=== PATIENT | male | born 1955 | race American Indian/Alaskan Native ===

== ENCOUNTER 2018-06-19 05:56 | Emergency (ER) | payer SELFPAY ==
--- NOTE | 2018-06-19 06:01 | Event Note ---
Date: 06/19/18 62-year-old gentleman with a reported history of BPH, on tamsulosin, following up with urology, Dr. Sanchez, presenting with spontaneous urinary retention. No other complaints. Meza catheter ordered, urinalysis, urine culture ordered, basic metabolic panel, magnesium ordered, nursing team to [facility] Meza catheter.
--- NOTE | 2018-06-19 06:49 | Emergency Department Report ---
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 He has been unable to urinate for several hours. He attributes the urinary retention to drinking beer last night. He has been compliant with Flomax therapy. He is followed by urologist Dr. Sanchez. Denies any pain. He denies fever. He is otherwise has been his normal state of good health. He has had Meza catheter on previous occasions. MD Complaint: other (urinary retention) -: This morning Severity: severe Consistency: constant urinary retention ED Review of Systems ROS: Stated complaint: URINARY RETENTION Other details as noted in HPI Comment: All other systems reviewed and negative Constitutional: denies: fever, malaise Respiratory: denies: shortness of breath ED Past Medical Hx - Past Medical History Previous Medical History?: Yes Additional medical history: BPH - Social History Smoking Status: Never Smoker ED Physical Exam - General General appearance: alert, in no apparent distress - Head Head exam: Present: atraumatic, normocephalic - Eye Eye exam: Present: normal appearance - ENT ENT exam: Present: mucous membranes moist - Neck Neck exam: Present: normal inspection - Respiratory Respiratory exam: Present: normal lung sounds bilaterally. Absent: respiratory distress - Cardiovascular Cardiovascular Exam: Present: regular rate, normal rhythm, normal heart sounds. Absent: systolic murmur, diastolic murmur, rubs, gallop - GI/Abdominal GI/Abdominal exam: Present: soft, normal bowel sounds. Absent: distended, tenderness, guarding, rebound - Rectal Rectal exam: Present: deferred - Extremities Exam Extremities exam: Present: normal inspection - Back Exam Back exam: Present: normal inspection - Neurological Exam Neurological exam: Present: alert, oriented X3 - Psychiatric Psychiatric exam: Present: normal affect, normal mood - Skin Skin exam: Present: warm, dry, intact, normal color. Absent: rash ED Medical Decision Making - Medical Decision Making Dr. Kunz has a history of benign prostatic hypertrophy. He presents with severe acute urinary retention. He requested Meza catheter. Meza catheter was placed using Coude catheter by nursing staff. He experienced immediately relief of discomfort with catheter placement. Dr. Kunz politely declined lab work which has unnecessary considering the acute nature of the urinary retention. he will Return to the ER for any concerns. Critical care attestation.: If time is entered above; I have spent that time in minutes in the direct care of this critically ill patient, excluding procedure time. ED Disposition Clinical Impression: Acute urinary retention, BPH (benign prostatic hyperplasia) Disposition: TO HOME OR SELFCARE Is pt being admited?: No Does the pt Need Aspirin: No Condition: Stable Instructions: Meza Catheter Placement and Care (ED) Referrals: CHEYENNE SANCHEZ MD [Staff Physician] - 3-5 Days
[2018-06-19 07:27] VITALS: BP 134/81
== END 2018-06-19 07:30 | disposition home or self-care (01) ==
LOC: ED 05:56 → EEVIPCON 05:56 → ED 07:30
DX: N40.0 Benign prostatic hyperplasia without lower urinary tract symptoms (principal)
CPT/HCPCS: 51702

== ENCOUNTER 2018-09-03 19:41 | Emergency (ER) | payer BC ==
[~2018-09-03 19:41] MED LIST: XYLOCAINE 2% UROJET ONE
--- NOTE | 2018-09-03 19:45 | Event Note ---
Date: 09/03/18 This is a pleasant 62-year-old gentleman who is known to myself previously, who has a history of urinary retention, and typically follows with urology, Dr. Oscar Covarrubias. Patient presents to the emergency room today with a complaint of recurrent urinary retention. No endorsement of additional complaints. Meza catheter with leg bag ordered, urinalysis, urine culture ordered.
[2018-09-03] MEDS ORDERED: MORPHINE IV ONE (20:18)
[2018-09-03] MEDS ORDERED: ZOFRAN IV ONE ×2 (20:19→20:34)
[2018-09-03] MEDS ORDERED: DILAUDID IV ONE ×2 (20:34→20:57)
[2018-09-03 20:46] VITALS: BP 167/92
--- NOTE | 2018-09-03 21:31 | Consultation ---
History of Present Illness - Reason for Consult Consult date: 09/03/18 - History of Present Illness This is a pleasant 62-year-old gentleman who is known to myself previously, who has a history of urinary retention. Patient presents to the emergency room today with a complaint of recurrent urinary retention. Two episodes retention in past. ER staff unable to insert leonard NKDA / bilat orchidopexy abd - distended circ bilat groin incisions wire / 16F yuha[place]iatam tip leonard with jane urine return A/P BPH reduce irritants written info given home with leonard big bag & leg bag flomax 2qd,proscar, cipro, ultram, & norco office urodynamics on flomax & proscar Exam - Constitutional Vitals: Temp Pulse Resp BP Pulse Ox 98.6 F 72 18 167/92 100 09/03/18 20:43 09/03/18 20:43 09/03/18 21:05 09/03/18 20:43 09/03/18 20:43
--- NOTE | 2018-09-03 21:52 | Emergency Department Report ---
HPI - General Chief Complaint: Tube Replacement Time Seen by Provider: 09/03/18 20:04 - HPI HPI: H/O urinary retention x once before, here with inability to urinate, and 10/10 suprapubic pain. Patient denies any fever or flank pain. The last time patient had similar symptoms, Meza catheter was placed, with relief. ED Past Medical Hx - Past Medical History Previous Medical History?: Yes Hx Hypertension: No Hx CVA: No Hx Heart Attack/AMI: No Hx Congestive Heart Failure: No Hx Diabetes: No Hx Deep Vein Thrombosis: No Hx Pulmonary Embolism: No Hx GERD: No Hx Liver Disease: No Hx Renal Disease: No Hx of Cancer: No Hx Sickle Cell Disease: No Hx Arthritis: No Hx Headaches / Migraines: No Hx Seizures: No Hx Kidney Stones: No Hx Psychiatric Treatment: No Hx Asthma: No Hx COPD: No Hx Tuberculosis: No Hx Dementia: No Hx HIV: No Additional medical history: BPH - Surgical History Past Surgical History?: No Hx Coronary Stent: No Hx Open Heart Surgery: No Hx Pacemaker: No Hx Internal Defibrillator: No Hx Cholecystectomy: No Hx Appendectomy: No Hx Breast Surgery: No - Social History Smoking Status: Never Smoker Substance Use Type: None ED Review of Systems ROS: Stated complaint: URINARY RETENTION Other details as noted in HPI Comment: All other systems reviewed and negative Gastrointestinal: denies: nausea Genitourinary: urgency Musculoskeletal: denies: back pain Skin: denies: rash Physical Exam - Physical Exam Vital Signs: Vital Signs 09/03/18 09/03/18 09/03/18 20:43 20:47 20:48 Temperature 98.6 F Pulse Rate 72 Respiratory 14 14 14 Rate Blood Pressure 167/92 Blood Pressure 167/92 [Right] O2 Sat by Pulse 99 Oximetry 09/03/18 21:05 Temperature Pulse Rate Respiratory 18 Rate Blood Pressure Blood Pressure [Right] O2 Sat by Pulse Oximetry Physical Exam: Physical Exam: - General Limitations: No Limitations General appearance: alert, in no apparent distress - Head Head exam: Present: atraumatic, normocephalic - Eye Eye exam: Present: normal appearance - ENT ENT exam: Present: mucous membranes moist - Neck Neck exam: Present: normal inspection - Respiratory Respiratory exam: Present: normal lung sounds bilaterally. Absent: respiratory distress - Cardiovascular Cardiovascular Exam: Present: normal rhythm. Absent: systolic murmur, diastolic murmur, rubs, gallop - GI/Abdominal GI/Abdominal exam: Present: soft, normal bowel sounds - Extremities Exam Extremities exam: Present: normal inspection ED Course Vital Signs 09/03/18 09/03/18 09/03/18 20:43 20:47 20:48 Temperature 98.6 F Pulse Rate 72 Respiratory 14 14 14 Rate Blood Pressure 167/92 Blood Pressure 167/92 [Right] O2 Sat by Pulse 99 Oximetry 09/03/18 21:05 Temperature Pulse Rate Respiratory 18 Rate Blood Pressure Blood Pressure [Right] O2 Sat by Pulse Oximetry ED Medical Decision Making - Medical Decision Making Nurses were unable to obtain Meza catheter, urologist publicity consultant was paged, he came to ED and have secured a Meza catheter. Critical care attestation.: If time is entered above; I have spent that time in minutes in the direct care of this critically ill patient, excluding procedure time. ED Disposition Clinical Impression: Urinary retention Disposition: DC-01 TO HOME OR SELFCARE Is pt being admited?: No Does the pt Need Aspirin: No Condition: Stable Instructions: Urinary Retention in Men (ED) Referrals: PRIMARY CARE, [Primary Care Provider] - 3-5 Days CHEYENNE YBARRA MD [Staff Physician] - 3-5 Days
== END 2018-09-03 22:08 | disposition home or self-care (01) ==
LOC: ED 19:41
DX: R33.9 Retention of urine, unspecified (principal)
CPT/HCPCS: 96374; 96375; 99282; J1170; J2270; J2405

== ENCOUNTER 2019-11-25 05:35 | Emergency (ER) | payer SELFPAY ==
--- NOTE | 2019-11-25 05:43 | Emergency Department Report ---
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 He has a history of BPH and he has had multiple episodes of urinary retention in the past. He came to this emergency department for it in late 2019. The patient also says that this happened a few weeks ago, but he went to the office of his urologist, Dr. Sanchez. Patient says that he woke up this morning and was unable to urinate and began having progressively worsening suprapubic abdominal pain. He says that he plans to have some type of surgery or procedure called "resume" through Dr. Sanchez, but he is waiting for his to come back from [place] where she has been stuck for the past 7 months due to the pandemic. ED Past Medical Hx - Past Medical History Hx Hypertension: No Hx CVA: No Hx Heart Attack/AMI: No Hx Congestive Heart Failure: No Hx Diabetes: No Hx Deep Vein Thrombosis: No Hx Pulmonary Embolism: No Hx GERD: No Hx Liver Disease: No Hx Renal Disease: No Hx Sickle Cell Disease: No Hx Arthritis: No Hx Headaches / Migraines: No Hx Seizures: No Hx Kidney Stones: No Hx Psychiatric Treatment: No Hx Asthma: No Hx COPD: No Hx Tuberculosis: No Hx Dementia: No Hx HIV: No Additional medical history: BPH - Surgical History Hx Coronary Stent: No Hx Open Heart Surgery: No Hx Pacemaker: No Hx Internal Defibrillator: No Hx Cholecystectomy: No Hx Appendectomy: No Hx Breast Surgery: No - Social History Smoking Status: Never Smoker Substance Use Type: None ED Review of Systems ROS: Stated complaint: SENT BY Other details as noted in HPI Comment: All other systems reviewed and negative Constitutional: denies: chills, fever Gastrointestinal: abdominal pain. denies: vomiting Genitourinary: other (urinary retention). denies: dysuria Physical Exam - Physical Exam Physical Exam: GENERAL: The patient is well-developed well-nourished. HENT: Normocephalic. Atraumatic. Patient has moist mucous membranes. EYES: Extraocular motions are intact. NECK: Supple. Trachea is midline. ABDOMEN: Abdomen is soft, nontender. There is no abdominal distention. SKIN: Skin is warm and dry. NEURO: The patient is awake, alert, and oriented. The patient is cooperative. Normal speech. MUSCULOSKELETAL: There is no limitation range of motion. ED Medical Decision Making - Medical Decision Making This patient has a history of BPH and urinary retention. This last happened a couple weeks ago. He drove himself in to be seen this morning and we placed a 18 [place] coud catheter. He put out about 600 ML's of urine and is feeling greatly improved. Switch to a leg bag. He has good outpatient follow-up with a urologist, Dr. Sanchez. Vital signs reassuring. Critical Care Time: No Critical care attestation.: If time is entered above; I have spent that time in minutes in the direct care of this critically ill patient, excluding procedure time. ED Disposition Clinical Impression: Urinary retention Disposition: DC-01 TO HOME OR SELFCARE Is pt being admited?: No Condition: Stable Instructions: Urinary Retention in Men (ED), Meza Catheter Placement and Care (ED), Urinary Leg Bag (GEN) Additional Instructions: Please follow-up with your urologist in the next few days. Return to the emergency department with any worsening of your symptoms or with any acute distress. Referrals: CHEYENNE SANCHEZ MD [Staff Physician] - 2-3 Days Time of Disposition: 05:43
[2019-11-25 05:59] VITALS: BP 106/63
== END 2019-11-25 06:10 | disposition home or self-care (01) ==
LOC: ED 05:35
DX: R33.9 Retention of urine, unspecified (principal)
CPT/HCPCS: 51702

== ENCOUNTER 2020-03-12 07:41 | Emergency (ER) | payer BC ==
[2020-03-12] MEDS ORDERED: HYDROmorphone 1 MG/1 ML INJ IV ONE ×2 (07:44→08:07)
[2020-03-12] MEDS ORDERED: ONDANSETRON 4 MG/2 ML INJ IV ONE (07:44)
--- NOTE | 2020-03-12 08:00 | Emergency Department Report ---
HPI - General PUI?: No Time Seen by Provider: 03/12/20 07:44 - HPI HPI: Room 36 The patient is a 64-year-old male present with a chief complaint of urinary retention. The patient has a history of BPH and is status post Rezum therapy [address] Sanchez. Patient states earlier today he had noticed some blood in his urine however over the past 5 hours he has been unable to urinate. Patient states in the past he has required a coud catheter for the same ED Past Medical Hx - Past Medical History Hx Hypertension: No Hx CVA: No Hx Heart Attack/AMI: No Hx Congestive Heart Failure: No Hx Diabetes: No Hx Deep Vein Thrombosis: No Hx Pulmonary Embolism: No Hx GERD: No Hx Liver Disease: No Hx Renal Disease: No Hx Sickle Cell Disease: No Hx Arthritis: No Hx Headaches / Migraines: No Hx Seizures: No Hx Kidney Stones: No Hx Psychiatric Treatment: No Hx Asthma: No Hx COPD: No Hx Tuberculosis: No Hx Dementia: No Hx HIV: No Additional medical history: BPH - Surgical History Hx Coronary Stent: No Hx Open Heart Surgery: No Hx Pacemaker: No Hx Internal Defibrillator: No Hx Cholecystectomy: No Hx Appendectomy: No Hx Breast Surgery: No Additional Surgical History: Rezum procedure for prostate - Family History Family history: no significant - Social History Smoking Status: Never Smoker Substance Use Type: None ED Review of Systems ROS: Stated complaint: GENERAL PAIN Other details as noted in HPI Constitutional: no symptoms reported Respiratory: no symptoms reported Endocrine: no symptoms reported Genitourinary: hematuria, other (Urinary retention) Physical Exam - Physical Exam Physical Exam: GENERAL: The patient is well-developed well-nourished male standing in room appearing to be in moderate discomfort HEENT: Normocephalic. Atraumatic. CHEST/LUNGS: There is no respiratory distress noted. ABDOMEN: There is no abdominal distention. SKIN: There is no diaphoresis. NEURO: The patient is awake, alert, and oriented. The patient is cooperative. The patient has normal speech and gait. MUSCULOSKELETAL: There is no evidence of acute injury. ED Course - Consultations Consultation #1: 03/12/20 Case discussed with urologist Dr. Sanchez- will come and place catheter ED Medical Decision Making - Differential Diagnosis Urinary retention Critical care attestation.: If time is entered above; I have spent that time in minutes in the direct care of this critically ill patient, excluding procedure time. ED Disposition Clinical Impression: Urinary retention Disposition: DC-01 TO HOME OR SELFCARE Is pt being admited?: No Does the pt Need Aspirin: No Condition: Stable Referrals: PRIMARY CARE, [Primary Care Provider] - 3-5 Days Time of Disposition: 09:31
--- NOTE | 2020-03-12 09:24 | Consultation ---
History of Present Illness - Reason for Consult Consult date: 03/12/20 - History of Present Illness The patient is a 64-year-old male present with a chief complaint of urinary retention. The patient has a history of BPH and is status post Rezum therapy 3 weeks ago. Patient states earlier today he had noticed some blood in his urine however over the past 5 hours he has been unable to urinate. Patient states in the past he has required a coud catheter for the same mild distension wire leonard---20 F---jane urine A/P retention home with leonard flomax 2ady x 1 month then 1qd x 1 month remove leonard on Saturday am Medications and Allergies Allergies Allergy/AdvReac Type Severity Reaction Status Date / Time No Known Allergies Allergy Unverified 11/25/19 05:53 Exam - Constitutional Vitals: Temp Pulse Resp BP Pulse Ox 98.4 F 64 16 126/85 100 03/12/20 08:13 03/12/20 08:13 03/12/20 08:13 03/12/20 08:13 03/12/20 08:13
[2020-03-12 10:21] LABS: Bilirubin,Urine NEG (Negative); Blood,Urine LG (Negative); Color,Urine Yellow (Yellow); Protein,Urine <15 mg/dL mg/dL (Negative); RBC,Urine > 182.0 /HPF (0.0-6.0); Urobilinogen,Urine < 2.0 mg/dL (<2.0)
[2020-03-12 11:23] VITALS: BP 105/62
== END 2020-03-12 11:23 | disposition home or self-care (01) ==
LOC: ED 07:41
DX: R33.9 Retention of urine, unspecified (principal); Z79.899 Other long term (current) drug therapy
CPT/HCPCS: 81001; 96374; 96375; 96376; 99283; J1170; J2405

== ENCOUNTER 2021-01-05 15:33 | Inpatient (IN) | payer BC ==
[2021-01-05] MEDS ORDERED: LORazepam 2 MG/ML VIAL ONE (15:41)
[2021-01-05] MEDS ORDERED: NALOXONE 2 MG/2 ML INJ IV ONE (15:42)
[2021-01-05] MEDS ORDERED: SODIUM CHLORIDE 0.9% 1000 ML 1,000 ML IV ONE ×2 (15:42→16:33)
[2021-01-05] MEDS ORDERED: LORazepam 2 MG/ML VIAL IV ONE (15:45)
[2021-01-05 15:53] LABS: Hemoglobin 14.6 gm/dl (11.8-15.2); Mean Corpuscular HGB Conc 32 % (32-34); Mean Corpuscular Volume 99 fl (84-94); Platelet Count 137 K/mm3 (140-440); Red Blood Count 4.53 M/mm3 (3.65-5.03); Red Cell Distribution Width 13.3 % (13.2-15.2)
[2021-01-05] MEDS ORDERED: levETIRAcetam 1000 MG/NS 0.75% 1,000 MG/100 ML BAG IV ONE (16:04)
[2021-01-05 16:08] LABS: BUN/Creatinine Ratio 15; Blood Urea Nitrogen 17 mg/dL (9-20); Calcium 9.7 mg/dL (8.4-10.2); Hemolysis Index 14
--- NOTE | 2021-01-05 16:25 | Cat Scan Report ---
CT head/brain wo con INDICATION: Altered mental status. TECHNIQUE: Routine CT head without contrast. All CT scans at this location are performed using CT dos e reduction for ALARA by means of automated exposure control. COMPARISON: None. FINDINGS: BRAIN / INTRACRANIAL CONTENTS: No acute hemorrhage, mass effect, midline shift, or hydrocephalus. No appreciable acute large territorial or lacunar infarct. No chronic infarct or focal atrophy. Normal b rain volume and ventricular/sulcal size for age. ORBITS: No significant abnormality of visualized orbits. SINUSES / MASTOIDS: No significant abnormality of visualized sinuses and mastoid air cells. ADDITIONAL FINDINGS: None. IMPRESSION: 1. No acute intracranial abnormality. Signer Name: Vitaliy Gama MD Signed: 01/05/2021 4:20 PM Workstation Name: [id number]
--- NOTE | 2021-01-05 16:45 | XRay Report ---
CHEST 1 VIEW 01/05/2021 3:39 PM INDICATION / CLINICAL INFORMATION: hypoxia. COMPARISON: None available. FINDINGS: SUPPORT DEVICES: None. HEART / MEDIASTINUM: No significant abnormality. LUNGS / PLEURA: Scattered peripheral patchy airspace opacities. No pneumothorax. ADDITIONAL FINDINGS: No significant additional findings. IMPRESSION: 1. Multifocal pneumonia, possibly Covid pneumonia. Signer Name: Kai Ferreira DO Signed: 01/05/2021 4:40 PM Workstation Name: [id number]
[2021-01-05] MEDS ORDERED: cefTRIAXone/NS 2 GM/100 ML 2 GM/100 ML BAG IV ONE (16:50)
[2021-01-05] MEDS ORDERED: AZITHROMYCIN/NS 500 MG/250 ML 500 MG/250 ML BAG IV ONE (16:50)
[2021-01-05] MEDS ORDERED: SODIUM CHLORIDE 0.9% 1000 ML IV SOLN IV ONE (16:50)
[2021-01-05 16:57] LABS: Bilirubin,Urine NEG (Negative); Blood,Urine NEG (Negative); Color,Urine Yellow (Yellow); Mucus,Urine FEW /HPF; Urobilinogen,Urine < 2.0 mg/dL (<2.0)
[2021-01-05 17:04] LABS: Amphetamine Screen,Urine Negative; Benzodiazepines Screen,Urine Negative; Cocaine Screen,Urine Negative; Methadone Screen,Urine Negative; Opiate Screen,Urine Negative
[2021-01-05 17:04] LABS: Band Neutrophils # (Manual) 0.2 K/mm3; Promyelocytes # (Manual) 0.1 K/mm3; Total Cells Counted 100
[2021-01-05 17:05] LABS: Platelet Estimate Consistent w Auto
[2021-01-05 17:21] LABS: Cannabinoid Screen,Urine Positive
--- NOTE | 2021-01-05 17:49 | Emergency Department Report ---
ED Altered Mental Status HPI - General Chief Complaint: Altered Mental Status Stated Complaint: SYNCOPAL EPISODE Time Seen by Provider: 01/05/21 15:42 Source: RN notes reviewed Mode of arrival: Stretcher Limitations: Altered Mental Status - History of Present Illness Initial Comments: Patient is a 65-year-old F [place] male with a past medical history of BPH and knee pain who is presenting as a code met. Patient found in [facility] was sonorous respirations but unconscious and unresponsive to painful stimuli. Patient rushed to the emergency department where he was placed on monitor. Patient is hypoxic but because of his altered mental status was initially fighting having oxygen placed. IV was established. Patient given Narcan on arrival to emergency department which had no effect. Over the course of approximately 20 to 30 minutes the patient slowly became more lucid. Patient states he has had no recent complaints. He denies any recent nausea vomiting shortness of breath chest pain. Patient states he does not remember coming to the hospital this morning however. - Related Data Allergies Allergy/AdvReac Type Severity Reaction Status Date / Time No Known Allergies Allergy Unverified 11/25/19 05:53 ED Review of Systems ROS: Stated complaint: SYNCOPAL EPISODE Other details as noted in HPI Comment: All other systems reviewed and negative ED Past Medical Hx - Past Medical History Hx Hypertension: No Hx CVA: No Hx Heart Attack/AMI: No Hx Congestive Heart Failure: No Hx Diabetes: No Hx Deep Vein Thrombosis: No Hx Pulmonary Embolism: No Hx GERD: No Hx Liver Disease: No Hx Renal Disease: No Hx Sickle Cell Disease: No Hx Arthritis: No Hx Headaches / Migraines: No Hx Seizures: No Hx Kidney Stones: No Hx Psychiatric Treatment: No Hx Asthma: No Hx COPD: No Hx Tuberculosis: No Hx Dementia: No Hx HIV: No Additional medical history: BPH - Surgical History Hx Coronary Stent: No Hx Open Heart Surgery: No Hx Pacemaker: No Hx Internal Defibrillator: No Hx Cholecystectomy: No Hx Appendectomy: No Hx Breast Surgery: No Additional Surgical History: Rezum procedure for prostate - Social History Smoking Status: Never Smoker Substance Use Type: None ED Physical Exam - General Limitations: Altered Mental Status General appearance: postictal - Head Head exam: Present: atraumatic, normocephalic - Eye Eye exam: Present: normal appearance, PERRL, EOMI Pupils: Present: normal accommodation. Absent: unequal - ENT ENT exam: Present: mucous membranes moist - Neck Neck exam: Present: normal inspection - Respiratory Respiratory exam: Present: normal lung sounds bilaterally. Absent: respiratory distress, wheezes, rales, rhonchi - Cardiovascular Cardiovascular Exam: Present: regular rate, normal rhythm, normal heart sounds. Absent: systolic murmur, diastolic murmur, rubs, gallop - GI/Abdominal GI/Abdominal exam: Present: soft, normal bowel sounds. Absent: distended, tenderness, guarding, rebound - Rectal Rectal exam: Present: deferred - Extremities Exam Extremities exam: Present: normal inspection - Back Exam Back exam: Present: normal inspection - Neurological Exam Neurological exam: Present: altered - Psychiatric Psychiatric exam: Present: normal affect, normal mood - Skin Skin exam: Present: warm, dry, intact, normal color. Absent: rash - Assessment Assessment Interval: Baseline (After approximately 30 minutes after arrival) - Level of Consciousness 1a. Level of Consciousness: alert/keenly responsive - LOC Questions 1b. LOC Questions: answers both correctly - LOC Command 1c. LOC Commands: performs tasks correctly - Best Gaze 2. Best Gaze: normal - Visual 3. Visual: no visual loss - Facial Palsy 4. Facial Palsy: normal symmetrical movement - Motor Arm 5a. Motor Arm Left: no drift 5b. Motor Arm Right: no drift - Motor Leg 6a. Motor Leg Left: no drift 6b. Motor Leg Right: no drift - Limb Ataxia 7. Limb Ataxia: absent - Sensory 8. Sensory: normal - Dysarthria 10. Dysarthria: mild/moderate dysarthria (Dysarthria lasted approximately 1 hour but then the patient's voice returned back to normal) - Extinction and Inattention 11. Extinction/Inattention: no abnormality ED Course Vital Signs 01/05/21 01/05/21 01/05/21 15:52 15:56 16:05 Pulse Rate 90 89 Respiratory 17 22 Rate Blood Pressure 144/78 Blood Pressure 119/74 [Left] O2 Sat by Pulse 93 88 84 Oximetry 01/05/21 01/05/21 01/05/21 16:15 16:31 16:45 Pulse Rate 80 64 77 Respiratory 16 23 19 Rate Blood Pressure 128/72 125/70 126/72 Blood Pressure [Left] O2 Sat by Pulse 86 96 97 Oximetry 01/05/21 01/05/21 01/05/21 17:01 17:15 17:31 Pulse Rate 73 69 82 Respiratory 30 H 22 27 H Rate Blood Pressure 126/75 132/75 118/68 Blood Pressure [Left] O2 Sat by Pulse 97 98 98 Oximetry - Reevaluation(s) Reevaluation #1: 01/05/21 17:45 At this time the patient was found unconscious again. Patient returned co mpletely to baseline approximately 30 minutes prior to this time. Patient was lucid and I explained to the patient the circumstances of the day. Patient voiced a good understanding and insight about his condition. Was alerted at this time by phlebotomy that the patient was unconscious with sonorous respirations. He has maintained his airway. Patient had 1 mg of Ativan ordered earlier but it was not used he is to get Ativan at this time. Patient also never received the Keppra that have been ordered and this was will be given at this point. No actual seizure activity was witnessed with however the patient does appear to be postictal - Lab Data Result diagrams: 01/05/21 15:47 01/05/21 15:47 Lab Results 01/05/21 01/05/21 01/05/21 Range/Units 15:47 15:47 15:47 WBC 9.1 (4.5-11.0) K/mm3 RBC 4.53 (3.65-5.03) M/mm3 Hgb 14.6 (11.8-15.2) gm/dl Hct 45.0 (35.5-45.6) % MCV 99 H (84-94) fl MCH 32 (28-32) pg MCHC 32 (32-34) % RDW 13.3 (13.2-15.2) % Plt Count 137 L (140-440) K/mm3 Add Manual Diff Complete Total Counted 100 Seg Neuts % (Manual) 80.0 H (40.0-70.0) % Band Neutrophils % 2.0 % Lymphocytes % (Manual) 10.0 L (13.4-35.0) % Monocytes % (Manual) 7.0 (0.0-7.3) % Promyelocytes % 1.0 % Nucleated RBC % Not Reportable Seg Neutrophils # Man 7.3 (1.8-7.7) K/mm3 Band Neutrophils # 0.2 K/mm3 Lymphocytes # (Manual) 0.9 L (1.2-5.4) K/mm3 Abs React Lymphs (Man) 0.0 K/mm3 Monocytes # (Manual) 0.6 (0.0-0.8) K/mm3 Eosinophils # (Manual) 0.0 (0.0-0.4) K/mm3 Basophils # (Manual) 0.0 (0.0-0.1) K/mm3 Metamyelocytes # 0.0 K/mm3 Myelocytes # 0.0 K/mm3 Promyelocytes # 0.1 K/mm3 Blast Cells # 0.0 K/mm3 WBC Morphology Not Reportable Hypersegmented Neuts Not Reportable Hyposegmented Neuts Not Reportable Hypogranular Neuts Not Reportable Smudge Cells Not Reportable Toxic Granulation Not Reportable Toxic Vacuolation Not Reportable Dohle Bodies Not Reportable Pelger-Huet Anomaly Not Reportable Lana Rods Not Reportable Platelet Estimate Consistent w auto Clumped Platelets Not Reportable Plt Clumps, EDTA Not Reportable Large Platelets Not Reportable Giant Platelets Not Reportable Platelet Satelliting Not Reportable Plt Morphology Comment Not Reportable RBC Morphology Not Reportable Dimorphic RBCs Not Reportable Polychromasia Not Reportable Hypochromasia Not Reportable Poikilocytosis Not Reportable Anisocytosis Not Reportable Microcytosis Not Reportable Macrocytosis Not Reportable Spherocytes Not Reportable Pappenheimer Bodies Not Reportable Sickle Cells Not Reportable Target Cells Not Reportable Tear Drop Cells Not Reportable Ovalocytes Not Reportable Helmet Cells Not Reportable Ruano-Lu [place] Bodies Not Reportable Mchenry Rings Not Reportable Rebeca Cells Not Reportable Bite Cells Not Reportable Crenated Cell Not Reportable Elliptocytes Not Reportable Acanthocytes (Spur) Not Reportable Rouleaux Not Reportable Hemoglobin C Crystals Not Reportable Schistocytes Not Reportable Malaria parasites Not Reportable Alex Bodies Not Reportable Hem Pathologist Commnt No D-Dimer (0-234) ng/mlDDU Sodium 141 (137-145) mmol/L Potassium 3.8 (3.6-5.0) mmol/L Chloride 102.2 (98-107) mmol/L Carbon Dioxide 15 L (22-30) mmol/L Anion Gap 28 mmol/L BUN 17 (9-20) mg/dL Creatinine 1.1 (0.8-1.3) mg/dL Estimated GFR > 60 ml/min BUN/Creatinine Ratio 15 % Glucose 117 H (75-100) mg/dL Lactic Acid 10.80 H* (0.7-2.0) mmol/L Calcium 9.7 (8.4-10.2) mg/dL Ferritin (30.0-300.0) ng/mL Lactate Dehydrogenase (91-180) units/L Troponin T (0.00-0.029) ng/mL C-Reactive Protein (0.00-1.30) mg/dL Urine Color (Yellow) Urine Turbidity (Clear) Urine pH (5.0-7.0) Ur Specific [place] (1.003-1.030) Urine Protein (Negative) mg/dL Urine Glucose (UA) (Negative) mg/dL Urine Ketones (Negative) mg/dL Urine Blood (Negative) Urine Nitrite (Negative) Urine Bilirubin (Negative) Urine Urobilinogen (<2.0) mg/dL Ur Leukocyte Esterase (Negative) Urine WBC (Auto) (0.0-6.0) /HPF Urine RBC (Auto) (0.0-6.0) /HPF U Epithel Cells (Auto) (0-13.0) /HPF Urine Mucus /HPF Urine Opiates Screen Urine Methadone Screen Ur Barbiturates Screen Ur Phencyclidine Scrn Ur Amphetamines Screen U Benzodiazepines Scrn Urine Cocaine Screen U Marijuana (THC) Screen Drugs of Abuse Note Plasma/Serum Alcohol (0-0.07) % 01/05/21 01/05/21 01/05/21 Range/Units 15:47 16:11 17:20 WBC (4.5-11.0) K/mm3 RBC (3.65-5.03) M/mm3 Hgb (11.8-15.2) gm/dl Hct (35.5-45.6) % MCV (84-94) fl MCH (28-32) pg MCHC (32-34) % RDW (13.2-15.2) % Plt Count (140-440) K/mm3 Add Manual Diff Total Counted Seg Neuts % (Manual) (40.0-70.0) % Band Neutrophils % % Lymphocytes % (Manual) (13.4-35.0) % Monocytes % (Manual) (0.0-7.3) % Promyelocytes % % Nucleated RBC % Seg Neutrophils # Man (1.8-7.7) K/mm3 Band Neutrophils # K/mm3 Lymphocytes # (Manual) (1.2-5.4) K/mm3 Abs React Lymphs (Man) K/mm3 Monocytes # (Manual) (0.0-0.8) K/mm3 Eosinophils # (Manual) (0.0-0.4) K/mm3 Basophils # (Manual) (0.0-0.1) K/mm3 Metamyelocytes # K/mm3 Myelocytes # K/mm3 Promyelocytes # K/mm3 Blast Cells # K/mm3 WBC Morphology Hypersegmented Neuts Hyposegmented Neuts Hypogranular Neuts Smudge Cells Toxic Granulation Toxic Vacuolation Dohle Bodies Pelger-Huet Anomaly Lana Rods Platelet Estimate Clumped Platelets Plt Clumps, EDTA Large Platelets Giant Platelets Platelet Satelliting Plt Morphology Comment RBC Morphology Dimorphic RBCs Polychromasia Hypochromasia Poikilocytosis Anisocytosis Microcytosis Macrocytosis Spherocytes Pappenheimer Bodies Sickle Cells Target Cells Tear Drop Cells Ovalocytes Helmet Cells Ruano-Lu [place] Bodies Mchenry Rings Rebeca Cells Bite Cells Crenated Cell Elliptocytes Acanthocytes (Spur) Rouleaux Hemoglobin C Crystals Schistocytes Malaria parasites Alex Bodies Hem Pathologist Commnt D-Dimer (0-234) ng/mlDDU Sodium (137-145) mmol/L Potassium (3.6-5.0) mmol/L Chloride (98-107) mmol/L Carbon Dioxide (22-30) mmol/L Anion Gap mmol/L BUN (9-20) mg/dL Creatinine (0.8-1.3) mg/dL Estimated GFR ml/min BUN/Creatinine Ratio % Glucose (75-100) mg/dL Lactic Acid 3.40 H* (0.7-2.0) mmol/L Calcium (8.4-10.2) mg/dL Ferritin (30.0-300.0) ng/mL Lactate Dehydrogenase (91-180) units/L Troponin T < 0.010 (0.00-0.029) ng/mL C-Reactive Protein (0.00-1.30) mg/dL Urine Color (Yellow) Urine Turbidity (Clear) Urine pH (5.0-7.0) Ur Specific [place] (1.003-1.030) Urine Protein (Negative) mg/dL Urine Glucose (UA) (Negative) mg/dL Urine Ketones (Negative) mg/dL Urine Blood (Negative) Urine Nitrite (Negative) Urine Bilirubin (Negative) Urine Urobilinogen (<2.0) mg/dL Ur Leukocyte Esterase (Negative) Urine WBC (Auto) (0.0-6.0) /HPF Urine RBC (Auto) (0.0-6.0) /HPF U Epithel Cells (Auto) (0-13.0) /HPF Urine Mucus /HPF Urine Opiates Screen Urine Methadone Screen Ur Barbiturates Screen Ur Phencyclidine Scrn Ur Amphetamines Screen U Benzodiazepines Scrn Urine Cocaine Screen U Marijuana (THC) Screen Drugs of Abuse Note Plasma/Serum Alcohol < 0.01 (0-0.07) % 01/05/21 01/05/21 01/05/21 Range/Units 17:20 17:20 17:20 WBC (4.5-11.0) K/mm3 RBC (3.65-5.03) M/mm3 Hgb (11.8-15.2) gm/dl Hct (35.5-45.6) % MCV (84-94) fl MCH (28-32) pg MCHC (32-34) % RDW (13.2-15.2) % Plt Count (140-440) K/mm3 Add Manual Diff Total Counted Seg Neuts % (Manual) (40.0-70.0) % Band Neutrophils % % Lymphocytes % (Manual) (13.4-35.0) % Monocytes % (Manual) (0.0-7.3) % Promyelocytes % % Nucleated RBC % Seg Neutrophils # Man (1.8-7.7) K/mm3 Band Neutrophils # K/mm3 Lymphocytes # (Manual) (1.2-5.4) K/mm3 Abs React Lymphs (Man) K/mm3 Monocytes # (Manual) (0.0-0.8) K/mm3 Eosinophils # (Manual) (0.0-0.4) K/mm3 Basophils # (Manual) (0.0-0.1) K/mm3 Metamyelocytes # K/mm3 Myelocytes # K/mm3 Promyelocytes # K/mm3 Blast Cells # K/mm3 WBC Morphology Hypersegmented Neuts Hyposegmented Neuts Hypogranular Neuts Smudge Cells Toxic Granulation Toxic Vacuolation Dohle Bodies Pelger-Huet Anomaly Lana Rods Platelet Estimate Clumped Platelets Plt Clumps, EDTA Large Platelets Giant Platelets Platelet Satelliting Plt Morphology Comment RBC Morphology Dimorphic RBCs Polychromasia Hypochromasia Poikilocytosis Anisocytosis Microcytosis Macrocytosis Spherocytes Pappenheimer Bodies Sickle Cells Target Cells Tear Drop Cells Ovalocytes Helmet Cells Ruano-Lu [place] Bodies Mchenry Rings [place] Cells Bite Cells Crenated Cell Elliptocytes Acanthocytes (Spur) Rouleaux Hemoglobin C Crystals Schistocytes Malaria parasites Alex Bodies Hem Pathologist Commnt D-Dimer 1795.74 H (0-234) ng/mlDDU Sodium (137-145) mmol/L Potassium (3.6-5.0) mmol/L Chloride (98-107) mmol/L Carbon Dioxide (22-30) mmol/L Anion Gap mmol/L BUN (9-20) mg/dL Creatinine (0.8-1.3) mg/dL Estimated GFR ml/min BUN/Creatinine Ratio % Glucose (75-100) mg/dL Lactic Acid (0.7-2.0) mmol/L Calcium (8.4-10.2) mg/dL Ferritin 201.5 (30.0-300.0) ng/mL Lactate Dehydrogenase 202 H (91-180) units/L Troponin T (0.00-0.029) ng/mL C-Reactive Protein 0.00 (0.00-1.30) mg/dL Urine Color (Yellow) Urine Turbidity (Clear) Urine pH (5.0-7.0) Ur Specific [place] (1.003-1.030) Urine Protein (Negative) mg/dL Urine Glucose (UA) (Negative) mg/dL Urine Ketones (Negative) mg/dL Urine Blood (Negative) Urine Nitrite (Negative) Urine Bilirubin (Negative) Urine Urobilinogen (<2.0) mg/dL Ur Leukocyte Esterase (Negative) Urine WBC (Auto) (0.0-6.0) /HPF Urine RBC (Auto) (0.0-6.0) /HPF U Epithel Cells (Auto) (0-13.0) /HPF Urine Mucus /HPF Urine Opiates Screen Urine Methadone Screen Ur Barbiturates Screen Ur Phencyclidine Scrn Ur Amphetamines Screen U Benzodiazepines Scrn Urine Cocaine Screen U Marijuana (THC) Screen Drugs of Abuse Note Plasma/Serum Alcohol (0-0.07) % 01/05/21 01/05/21 Range/Units Unknown Unknown WBC (4.5-11.0) K/mm3 RBC (3.65-5.03) M/mm3 Hgb (11.8-15.2) gm/dl Hct (35.5-45.6) % MCV (84-94) fl MCH (28-32) pg MCHC (32-34) % RDW (13.2-15.2) % Plt Count (140-440) K/mm3 Add Manual Diff Total Counted Seg Neuts % (Manual) (40.0-70.0) % Band Neutrophils % % Lymphocytes % (Manual) (13.4-35.0) % Monocytes % (Manual) (0.0-7.3) % Promyelocytes % % Nucleated RBC % Seg Neutrophils # Man (1.8-7.7) K/mm3 Band Neutrophils # K/mm3 Lymphocytes # (Manual) (1.2-5.4) K/mm3 Abs React Lymphs (Man) K/mm3 Monocytes # (Manual) (0.0-0.8) K/mm3 Eosinophils # (Manual) (0.0-0.4) K/mm3 Basophils # (Manual) (0.0-0.1) K/mm3 Metamyelocytes # K/mm3 Myelocytes # K/mm3 Promyelocytes # K/mm3 Blast Cells # K/mm3 WBC Morphology Hypersegmented Neuts Hyposegmented Neuts Hypogranular Neuts Smudge Cells Toxic Granulation Toxic Vacuolation Dohle Bodies Pelger-Huet Anomaly Lana Rods Platelet Estimate Clumped Platelets Plt Clumps, EDTA Large Platelets Giant Platelets Platelet Satelliting Plt Morphology Comment RBC Morphology Dimorphic RBCs Polychromasia Hypochromasia Poikilocytosis Anisocytosis Microcytosis Macrocytosis Spherocytes Pappenheimer Bodies Sickle Cells Target Cells Tear Drop Cells Ovalocytes Helmet Cells Ruano-Lu [place] Bodies Mchenry Rings Rebeca Cells Bite Cells Crenated Cell Elliptocytes Acanthocytes (Spur) Rouleaux Hemoglobin C Crystals Schistocytes Malaria parasites Alex Bodies Hem Pathologist Commnt D-Dimer (0-234) ng/mlDDU Sodium (137-145) mmol/L Potassium (3.6-5.0) mmol/L Chloride (98-107) mmol/L Carbon Dioxide (22-30) mmol/L Anion Gap mmol/L BUN (9-20) mg/dL Creatinine (0.8-1.3) mg/dL Estimated GFR ml/min BUN/Creatinine Ratio % Glucose (75-100) mg/dL Lactic Acid (0.7-2.0) mmol/L Calcium (8.4-10.2) mg/dL Ferritin (30.0-300.0) ng/mL Lactate Dehydrogenase (91-180) units/L Troponin T (0.00-0.029) ng/mL C-Reactive Protein (0.00-1.30) mg/dL Urine Color Yellow (Yellow) Urine Turbidity Clear (Clear) Urine pH 5.0 (5.0-7.0) Ur Specific [place] 1.020 (1.003-1.030) Urine Protein 100 mg/dl (Negative) mg/dL Urine Glucose (UA) Neg (Negative) mg/dL Urine Ketones Tr (Negative) mg/dL Urine Blood Neg (Negative) Urine Nitrite Neg (Negative) Urine Bilirubin Neg (Negative) Urine Urobilinogen < 2.0 (<2.0) mg/dL Ur Leukocyte Esterase Neg (Negative) Urine WBC (Auto) 2.0 (0.0-6.0) /HPF Urine RBC (Auto) 2.0 (0.0-6.0) /HPF U Epithel Cells (Auto) < 1.0 (0-13.0) /HPF Urine Mucus Few /HPF Urine Opiates Screen Negative Urine Methadone Screen Negative Ur Barbiturates Screen Negative Ur Phencyclidine Scrn Negative Ur Amphetamines Screen Negative U Benzodiazepines Scrn Negative Urine Cocaine Screen Negative U Marijuana (THC) Screen Positive Drugs of Abuse Note Disclamer Plasma/Serum Alcohol (0-0.07) % - EKG Data -: EKG Interpreted by Me EKG shows normal: sinus rhythm, axis, intervals, QRS complexes, ST-T waves Rate: normal Interpretation: normal EKG - Radiology Data [facility] [address] [place] [address] XRay Report Signed Patient: DAVID CRAMER MR#: [id number] : 1955 Acct:[id number] Age/Sex: 65 / M ADM Date: 01/05/21 Loc: ED Attending Dr: Ordering Physician: GT CROWLEY MD Date of Service: 01/05/21 Procedure(s): XR chest 1V ap Accession Number(s): [id number] cc: GT CROWLEY MD Fluoro Time In Minutes: CHEST 1 VIEW 01/05/2021 3:39 PM INDICATION / CLINICAL INFORMATION: hypoxia. COMPARISON: None available. FINDINGS: SUPPORT DEVICES: None. HEART / MEDIASTINUM: No significant abnormality. LUNGS / PLEURA: Scattered peripheral patchy airspace opacities. No pneumothorax. ADDITIONAL FINDINGS: No significant additional findings. IMPRESSION: 1. Multifocal pneumonia, possibly Covid pneumonia. Signer Name: Kai Ferreira DO Signed: 01/05/2021 4:40 PM Workstation Name: [place] [id number] Cat Scan Report Signed Patient: DAVID CRAMER MR#: [id number] : 1955 Acct:[id number] Age/Sex: 65 / M ADM Date: 01/05/21 Loc: ED Attending Dr: Ordering Physician: GT CROWLEY MD Date of Service: 01/05/21 Procedure(s): CT head/brain wo con Accession Number(s): [id number] cc: GT CROWLEY MD CT head/brain wo con INDICATION: Altered mental status. TECHNIQUE: Routine CT head without contrast. All CT scans at this location are performed using CT dose reduction for ALARA by means of automated exposure control. COMPARISON: None. FINDINGS: BRAIN / INTRACRANIAL CONTENTS: No acute hemorrhage, mass effect, midline shift, or hydrocephalus. No appreciable acute large territorial or lacunar infarct. No chronic infarct or focal atrophy. Normal brain volume and ventricular/sulcal size for age. ORBITS: No significant abnormality of visualized orbits. SINUSES / MASTOIDS: No significant abnormality of visualized sinuses and mastoid air cells. ADDITIONAL FINDINGS: None. IMPRESSION: 1. No acute intracranial abnormality. Signer Name: Vitaliy Gama MD Signed: 01/05/2021 4:20 PM Workstation Name: [id number] Transcribed By: GEMMA Dictated By: Vitaliy Gama MD Electronically Authenticated By: Vitaliy Gama MD Signed Date/Time: 01/05/21 1620 - Medical Decision Making Patient is a 65-year-old F [place] male who is presenting with 2 episodes of unconsciousness followed by what appears to be postictal phase lasting presenting for 1/2-hour. Seizure activity was not seen directly. Patient in between these episodes did return to baseline as far as his mentation. Patient also even when he he is completely lucid has O2 sats on room air less than 90%. Chest x-ray consistent with a possible Covid pneumonia. Lactic acid initially was 10 but is decreased down to 3. Patient did receive fluids. Patient to receive Keppra and Ativan. Rocephin and azithromycin were given. Will also start the patient on Decadron. CT angio was pending. Patient will be admitted to the hospital service. Critical Care Time: Yes (75) Critical care attestation.: If time is entered above; I have spent that time in minutes in the direct care of this critically ill patient, excluding procedure time. ED Disposition Clinical Impression: Postictal confusion, Seizure, Suspected COVID-19 virus infection, Hypoxia Disposition: ADMITTED INPATIENT Is pt being admited?: Yes Does the pt Need Aspirin: No Condition: Stable Time of Disposition: 18:22
[2021-01-05] MEDS ORDERED: dexAMETHasone 20 MG/5 ML VIAL IV ONE (18:20)
[2021-01-05] MEDS ORDERED: oxyCODONE /ACETAMINOPHEN 5-325MG TAB PO PRN (18:33)
[2021-01-05] MEDS ORDERED: HYDROmorphone 1 MG/1 ML INJ IV PRN (18:33)
[2021-01-05] MEDS ORDERED: ALBUTEROL 2.5 MG/3 ML NEBU IH PRN (18:33)
--- NOTE | 2021-01-05 18:42 | History and Physical Report ---
History of Present Illness Chief complaint: Unresponsive History of present illness: 65 YO Male with BPH presents ED for evaluation. Patient is confused and lethargic the time my evaluation is unable provide history. Patient taken from ED staff. Patient was found down and unresponsive in the physician lounge. A code met was called. Patient transported to ED for further care and evaluation. Patient experienced multiple generalized seizures while in the emergency department. Patient seen and evaluated in the emergency department. All lab and imaging studies reviewed. Patient found to have a pulse oximetry of 88% on room air which is consistent with acute hypoxemic respiratory failure. Chest x- ray revealed bilateral pneumonia suspected secondary to coronavirus infection versus aspiration. Patient found to have metabolic encephalopathy, metabolic acidosis, as well as status epilepticus. Patient admitted to IMCU and initiated on pneumonia protocol as well as coronavirus protocol and treated with a ntiepileptic therapy. Pulmonary team consulted in ED. Patient is confused and lethargic at time my evaluation but has a positive gag reflex and is able to protect his airway without difficulty. No further history is obtainable. No prior admission for review. No medication listed at time of admission reconciliation. Advanced care planning conducted in ED. Past History Past Medical History: other (See HPI) Past Surgical History: No surgical history, Other (See HPI) Social history: single. denies: smoking, alcohol abuse, prescription drug abuse Family history: no significant family history, other (See HPI) Medications and Allergies Allergies Allergy/AdvReac Type Severity Reaction Status Date / Time No Known Allergies Allergy Unverified 11/25/19 05:53 Review of Systems ROS unobtainable: due to mental status Exam - Constitutional Vitals: Temp Pulse Resp BP Pulse Ox 86 25 H 144/78 87 01/05/21 18:31 01/05/21 18:36 01/05/21 18:31 01/05/21 18:36 General appearance: Present: mild distress - EENT Eyes: Present: PERRL ENT: hearing intact, clear oral mucosa - Neck Neck: Present: supple, normal ROM - Respiratory Respiratory effort: labored, accessory muscle use Respiratory: bilateral: diminished, rhonchi - Cardiovascular Heart Sounds: Present: S1 & S2. Absent: rub, click - Extremities Extremities: pulses symmetrical, No edema Peripheral Pulses: within normal limits - Abdominal General gastrointestinal: Present: soft, non-tender, non-distended, normal bowel sounds Male genitourinary: Present: normal - Integumentary Integumentary: Present: clear, warm, dry - Musculoskeletal Musculoskeletal: generalized weakness - Psychiatric Psychiatric: no appropriate mood/affect, no intact judgment & insight, no memory intact, agitated - Neurologic Neurologic: CNII-XII intact, no focal deficits, moves all extremities, no gait normal HEART Score - HEART Score Troponin: Troponin T < 0.010 ng/mL (0.00-0.029) 01/05/21 16:11 Results - Labs CBC & Chem 7: 01/05/21 15:47 01/05/21 15:47 Labs: Abnormal lab results 01/05/21 01/05/21 01/05/21 Range/Units 15:47 15:47 15:47 MCV 99 H (84-94) fl Plt Count 137 L (140-440) K/mm3 Seg Neuts % (Manual) 80.0 H (40.0-70.0) % Lymphocytes % (Manual) 10.0 L (13.4-35.0) % Lymphocytes # (Manual) 0.9 L (1.2-5.4) K/mm3 D-Dimer (0-234) ng/mlDDU Carbon Dioxide 15 L (22-30) mmol/L Glucose 117 H (75-100) mg/dL Lactic Acid 10.80 H* (0.7-2.0) mmol/L Lactate Dehydrogenase (91-180) units/L 01/05/21 01/05/21 01/05/21 Range/Units 17:20 17:20 17:20 MCV (84-94) fl Plt Count (140-440) K/mm3 Seg Neuts % (Manual) (40.0-70.0) % Lymphocytes % (Manual) (13.4-35.0) % Lymphocytes # (Manual) (1.2-5.4) K/mm3 D-Dimer 1795.74 H (0-234) ng/mlDDU Carbon Dioxide (22-30) mmol/L Glucose (75-100) mg/dL Lactic Acid 3.40 H* (0.7-2.0) mmol/L Lactate Dehydrogenase 202 H (91-180) units/L Assessment and Plan - Patient Problems (1) Acute hypoxemic respiratory failure Current Visit: Yes Status: Acute Plan to address problem: Supplemental oxygen, pulse oximetry, chest x-ray, CT scan chest, nebulizer therapy, noninvasive positive pressure ventilation as clinically indicated if patient is unable to maintain pulse oximetry with supplemental oxygen via nasal cannula. (2) Status epilepticus Current Visit: Yes Status: Acute Plan to address problem: Antiepileptic therapy, Keppra therapy, supportive care, seizure precautions, neurochecks. (3) Metabolic acidosis Current Visit: Yes Status: Acute Plan to address problem: BMP, IV bicarbonate therapy, repeat BMP in a.m. (4) Metabolic encephalopathy Current Visit: Yes Status: Acute Plan to address problem: CT head, neuro check, seizure precaution, aspiration precautions (5) Suspected COVID-19 virus infection Current Visit: Yes Status: Acute Plan to address problem: Coronavirus protocol: Contact precaution, isolation precautions, IV antibiotic therapy, IV steroid therapy, vitamin C therapy, vitamin D therapy, zinc therapy, prophylactic anticoagulation (6) Pneumonia Current Visit: Yes Status: Acute Plan to address problem: Chest x-ray, CT chest, supplemental oxygen, pulse oximetry, IV antibiotic therapy, pulse oximetry, nebulizer therapy, pulmonary toilet. Pulmonary team consulted in ED (7) DVT prophylaxis Current Visit: Yes Status: Acute Plan to address problem: SCD to bilateral lower extremities while in bed, prophylactic anticoagulation (8) Advance care planning Current Visit: Yes Status: Acute Plan to address problem: Disease education conducted, care plan discussed, diagnoses discussed, patient is full code, +30 minutes.
--- NOTE | 2021-01-05 19:23 | Consultation ---
History of Present Illness Consult date: 01/05/21 Requesting physician: PROSPER MICHEL Reason for consult: pneumonia, other ([facility]I COVID-19) History of present illness: PULMONARY/CCM CONSULT NOTE (Full dictation # [id number]) Please see dictated notes for full details Medications and Allergies Allergies Allergy/AdvReac Type Severity Reaction Status Date / Time No Known Allergies Allergy Unverified 11/25/19 05:53 Active Meds: Active Medications Acetaminophen (Acetaminophen 325 Mg Tab) 650 mg PO Q6H PRN PRN Reason: Pain MILD(1-3)/Fever >100.5/ROPER Albuterol (Albuterol 2.5 Mg/3 Ml Nebu) 2.5 mg IH Q3HRT PRN PRN Reason: Shortness Of Breath Ascorbic Acid (Ascorbic Acid 500 Mg Tab) 500 mg PO BID LEIA Cholecalciferol (Cholecalciferol (Vit D3) 400 Unit Tab) 1,000 unit PO QDAY LEIA Heparin Sodium (Porcine) (Heparin 5,000 Unit/1 Ml Vial) 5,000 unit SUB-Q Q12HR LEIA Hydromorphone HCl (Hydromorphone 1 Mg/1 Ml Inj) 0.5 mg IV Q23H PRN PRN Reason: Pain , Severe (7-10) Cefepime HCl (Cefepime/Ns 2 Gm/100 Ml) 2 gm in 100 mls @ 200 mls/hr IV Q8H LEIA; Protocol Metronidazole (Flagyl 500 Mg/100 Ml) 500 mg in 100 mls @ 100 mls/hr IV Q8H LEIA; Protocol Methylprednisolone Sodium Succinate (Methylprednisolone Sod Succinate 40 Mg/1 Ml Inj) 40 mg IV Q8HR [facility]IA Oxycodone/Acetaminophen (Oxycodone /Acetaminophen 5-325mg Tab) 1 tab PO Q16H PRN PRN Reason: Pain, Moderate (4-6) Sodium Bicarbonate (Sodium Bicarb 8.4% 50 Meq/50 Ml Syringe) 50 meq IV Q8H LEIA Stop: 01/06/21 18:47 Sodium Chloride (Sodium Chloride 0.9% 10 Ml Flush Syringe) 10 ml IV BID LEIA Sodium Chloride (Sodium Chloride 0.9% 10 Ml Flush Syringe) 10 ml IV PRN PRN PRN Reason: LINE FLUSH Zinc Sulfate (Zinc Sulfate 220 Mg Cap) 220 mg PO BID [facility] Physical Examination Vital signs: Vital Signs Pulse Resp Pulse Ox 90 17 93 01/05/21 15:52 01/05/21 15:52 01/05/21 15:52 Results - Laboratory Findings CBC and BMP: 01/05/21 15:47 01/05/21 15:47 PT/INR, D-dimer D-Dimer 1795.74 ng/mlDDU (0-234) H 01/05/21 17:20 Abnormal lab findings: Abnormal Labs 01/05/21 01/05/21 01/05/21 15:47 15:47 15:47 MCV 99 H Plt Count 137 L Seg Neuts % (Manual) 80.0 H Lymphocytes % (Manual) 10.0 L Lymphocytes # (Manual) 0.9 L D-Dimer Carbon Dioxide 15 L Glucose 117 H Lactic Acid 10.80 H* Lactate Dehydrogenase 01/05/21 01/05/21 01/05/21 17:20 17:20 17:20 MCV Plt Count Seg Neuts % (Manual) Lymphocytes % (Manual) Lymphocytes # (Manual) D-Dimer 1795.74 H Carbon Dioxide Glucose Lactic Acid 3.40 H* Lactate Dehydrogenase 202 H
[2021-01-05] MEDS ORDERED: SODIUM PHOSPHATE 30 MMOL in SODIUM CHLORIDE 0.9% 500 ML 500 ML IV ONE (21:37)
[2021-01-05] MEDS ORDERED: POTASSIUM PHOSPHATE 15 MMOL in SODIUM CHLORIDE 0.9% 250ML 250 ML IV ONE (21:37)
[2021-01-05] MEDS: CEFEPIME/NS 2 GM/100 ML 2 GM/100 ML BAG IV SCH (21:38)
--- NOTE | 2021-01-05 21:38 | Cat Scan Report ---
CTA CHEST WITH CONTRAST INDICATION / CLINICAL INFORMATION: hypoxia, PNA r/o PE. TECHNIQUE: Axial CT images were obtained through the chest after injection of 100 cc of Omnipaque 350 IV contrast. 3 plane MIP and/or 3D reconstructions were produced. All CT scans at this location are performed using CT dose reduction for ALARA by means of automated exposure control. COMPARISON: Chest radiograph from earlier in the day FINDINGS: PULMONARY ARTERIES: No pulmonary emboli. THORACIC AORTA: No significant abnormality. HEART: No significant abnormality. CORONARY ARTERY CALCIFICATION: None. MEDIASTINUM / LOU: No significant abnormality. PLEURA: No pleural effusion. No pneumothorax. LUNGS: There are diffuse groundglass opacities scattered throughout the bilateral lungs. ADDITIONAL FINDINGS: None. UPPER ABDOMEN: No acute findings. SKELETAL STRUCTURES: No significant osseous abnormality. IMPRESSION: 1. No CT evidence for pulmonary embolism. 2. Diffuse groundglass opacities in bilateral lungs most consistent with Covid pneumonia. Signer Name: Kai Ferreira DO Signed: 01/05/2021 9:34 PM Workstation Name: [id number]
--- NOTE | 2021-01-05 21:40 | Event Note ---
Date: 01/05/21 came back to evaluate stat Co-oximetry ordered still not drawn phosphorus and Mg levels corrected RN instructed to get CTA before transfer to [facility]
[2021-01-05] MEDS ORDERED: MAGNESIUM SULFATE 2 GM/50 ML BAG IV ONE (21:41)
[2021-01-05] MEDS: metroNIDAZOLE/NS 500 MG/100 ML 500 MG/100 ML BAG IV SCH (22:00)
[2021-01-05 22:14] LABS: ABG Base Excess -0.9 mmol/L (-2.0-3.0); ABG HCO3 24.1 mmol/L (20.0-26.0); ABG Methemoglobin 0.4 % (0.0-1.5); ABG Oxygen Saturation 97.9 % (95.0-99.0); ABG PH 7.387 pH Units (7.350-7.450); ABG PO2 107.6 mm Hg (80.0-90.0)
[2021-01-05] MEDS: SODIUM BICARB 8.4% 50 MEQ/50 ML SYRINGE IV SCH (23:40)
[2021-01-05] MEDS: methylPREDNISolone Sod Succinate 40 MG/1 ML INJ IV SCH (23:42)
[2021-01-05] MEDS: HEPARIN 5,000 UNIT/1 ML VIAL SUB-Q SCH (23:42)
[2021-01-06] MEDS: ZINC SULFATE 220 MG CAP PO SCH ×3 (00:06→21:57)
[2021-01-06] MEDS: ASCORBIC ACID 500 MG TAB PO SCH ×3 (00:06→21:57)
[2021-01-06] MEDS: metroNIDAZOLE/NS 500 MG/100 ML 500 MG/100 ML BAG IV SCH ×2 (04:41→10:35)
[2021-01-06] MEDS: CEFEPIME/NS 2 GM/100 ML 2 GM/100 ML BAG IV SCH ×3 (04:41→21:58)
[2021-01-06] MEDS: SODIUM BICARB 8.4% 50 MEQ/50 ML SYRINGE IV SCH ×2 (04:43→17:40)
[2021-01-06 05:27] LABS: Hematocrit 39.1 % (35.5-45.6); Hemoglobin 12.8 gm/dl (11.8-15.2); Mean Corpuscular HGB Conc 33 % (32-34); Mean Corpuscular Volume 97 fl (84-94); Platelet Count 121 K/mm3 (140-440); Red Blood Count 4.03 M/mm3 (3.65-5.03)
[2021-01-06 05:40] LABS: Alanine Aminotransferase 16 units/L (7-56); Albumin 3.3 g/dL (3.9-5); BUN/Creatinine Ratio 24; Blood Urea Nitrogen 19 mg/dL (9-20); Calcium 8.3 mg/dL (8.4-10.2); Hemolysis Index 7
[2021-01-06] MEDS: methylPREDNISolone Sod Succinate 40 MG/1 ML INJ IV SCH ×3 (05:50→22:00)
[2021-01-06] MEDS: ACETAMINOPHEN 325 MG TAB PO PRN (05:53)
--- NOTE | 2021-01-06 07:17 | Consultation ---
DATE OF CONSULTATION: 01/05/2021 PULMONARY CRITICAL CARE CONSULT NOTE CONSULTING PHYSICIAN: Dr. Sunny Small. REASON FOR CONSULTATION: Acute hypoxemic respiratory failure, acute encephalopathy. CHIEF COMPLAINT AND HISTORY OF PRESENT ILLNESS: As follows. The patient is a now 65-year-old male with past medical history really unknown except for benign prostatic hyperplasia, who has also been having some knee pain recently. He presented as a rapid response. He apparently was found in the ____ lounge with sonorous respirations, unconscious, unresponsive to painful stimuli. He never lost a pulse. As far as we can tell, he did not require any CPR. In the Emergency Room, was found to be hypoxemic. He also initially was agitated. Nobody actually saw grand mal type seizure activities, but that was the initial diagnosis. He was given Narcan with a little effect. He became slowly more lucid. He denied nausea, vomiting, shortness of breath. He does not remember he has a little bit of amnesia and may very well be postictal. Later after getting into the Emergency Room, he was again found with altered mental status. He had been lucid about 30 minutes before this with physical instructor mentioned that the patient was having sonorous respirations and was essentially unconscious. He was stabilized and given his first dose of Keppra. We were asked to assist with management. When I stopped by to see him, I actually saw him looking rather delirious, trying to walk out of the room. He had disconnected himself from his IV line and was definitely confused or delirious will be the way. He denied any pain. I asked if he had any known history of seizures, he had denied. He apparently had an aspiration episode because I did see some emesis type secretions on his shirt at the initial time, he was wheeled out of the rapid response area. With regards to tobacco use/abuse history, that history is unknown. The above is really as much of the history of presentation as I have. PAST MEDICAL HISTORY: BPH. PAST SURGICAL HISTORY: Unknown. MEDICATIONS: He was on at the time I stopped by to see him were reviewed, pertinent medications were included the following: Tylenol 650 mg p.o. q. 6 hours p.r.n. mild pain or fever, albuterol 2.5 mg nebulized q. 3 hours p.r.n. shortness of breath, vitamin C 500 mg p.o. b.i.d., cefepime 2 grams IV q. 8 hours, vitamin D3 1000 units p.o. daily, heparin 5000 units subcutaneous q. 2., Dilaudid 0.5 mg IV q. 23. p.r.n. severe pain, Solu-Medrol 40 mg IV q. 8 hours, Flagyl 500 mg IV q. 8 hours, Percocet 1 tablet p.o. q. 6 hours p.r.n. moderate pain, zinc sulfate 220 mg p.o. b.i.d. ALLERGIES: No known drug allergies. DIET: Thin gentleman, no significant weight loss or gain in the preceding few weeks to months. FAMILY AND SOCIAL HISTORY: Lives in the community. Alcohol, tobacco use, or abuse history is unknown. FAMILY HISTORY: Otherwise unknown. REVIEW OF SYSTEMS: Unobtainable secondary to the patient's medical and mental condition. Since he has been in the Emergency Room, no grand mal seizures. No gross hematochezia or melena, no gross hematuria, no hematemesis, no bloody tracheal secretions. Review of systems otherwise unobtainable or as in the body of history above. PHYSICAL EXAMINATION: VITAL SIGNS: At presentation over here, temperature 99.2, pulse 87, respiratory rate at presentation was 26 and blood pressure 144/78, O2 sats now 95% on 100% nonrebreather mask. GENERAL: He is an elderly, thin male. Normocephalic, atraumatic. Resting in bed with mildly increased respiratory effort at rest. HEAD, EYES, EARS, NOSE AND THROAT: Anicteric. No conjunctival erythema. Oropharynx is dry. No perioral cyanosis can be noted. No gross jugular venous distention, no thyromegaly. Grossly, there were no palpable lymph nodes in the supraclavicular or submandibular lymph node chains. LUNGS: Auscultation of both lung bee revealed bilateral rales, right greater than left. No active wheezing. HEART: Sounds 1 and 2 are heard at the time of my evaluation, regular rate and rhythm without overt rubs or murmurs. ABDOMEN: Soft, flat, bowel sounds are positive, nontender, no palpable hepatosplenomegaly. EXTREMITIES: Without overt digital clubbing or cyanosis. No pedal edema. No point tenderness over his knees to palpation both knee joints. Pedal pulses 2+. NEUROLOGIC: Pupils are equal, round, about 4 mm. When I saw them, reactive to light. Extraocular muscles and movements appeared intact. No nystagmus. He had very poor insight and judgment. He appeared delirious. He was somewhat confused, possibly postictal; however, no fasciculations also was seen in the musculature that I could visibly observe. PSYCHIATRIC: Mood and affect were flat. He was delirious. SKIN: Normal turgor without overt cellulitis or rash in the areas I examined. Please see the wound care nurses' notes for full description of his skin. LABORATORY DATA: From my review as follows: White cell count 9100, hemoglobin 14.6, hematocrit 45.0, platelet count 137, 2% band neutrophils. D-dimer elevated at 1796. Serum sodium 141, potassium 3.8, chloride 102, bicarbonate 15, BUN 17, creatinine 1.1, glucose 117. Lactic acid level was 10.08, it is down to 3.4. Ferritin within normal limits. Troponin within normal limits. CRP unremarkable. Urinalysis negative for nitrites and leukocyte esterase, trace ketones. Urine drug screen was presumptive negative. Alcohol level was less than 0.01. RADIOGRAPHIC STUDIES: Chest x-ray shows some perihilar infiltrate at worst, borderline cardiomegaly, no gross pneumothorax, no gross bony fracture. A CT scan of the head was also done. It was read as no acute intracranial abnormality. ASSESSMENT: 1. Acute encephalopathy, possibly toxic metabolic. 2. Acute hypoxemic respiratory failure. 3. Possible seizures. 4. History of benign prostatic hypertrophy. 5. Thrombocytopenia. 6. Lactic acidosis/metabolic acidosis. PLAN: The etiology of the altered mental status is unclear. There is a suggestion that he has had significant amounts of knee pain, a suggestion of possible history of local anesthetic systemic toxicity, the LAST syndrome. We will go ahead and get co-oximetry and ensure that ____ levels are not significantly elevated. He will be followed clinically as well. Neurology consultation will be placed. Oxygen will be weaned to keep sats greater than or equal to about 90%. I am bothered also with a relatively clear chest x-ray, need to rule out acute pulmonary embolism. I will go ahead and order a CT angiogram of the chest and get bilateral lower extremity Dopplers to rule out venous thromboembolic phenomenon. I will hold on empiric full anticoagulation, but will certainly continue DVT prophylaxis. He is also a person under investigation for COVID-19 infection at this point. He will be treated empirically for possible aspiration pneumonia, healthcare-associated pneumonia. I will consider the beginning Precedex if the delirium is persistent, in particular to get him through the CT procedure. He will be n.p.o. in the short time. I will be putting him on GI and DVT prophylaxis. He has been started empirically for possible COVID-19 treatment with systemic steroids. He also has received community-acquired pneumonia therapy and received some Flagyl. Infectious disease consultation will be placed. I will order a Procalcitonin level to help guide clinical decision making. I will keep a close eye on his kidneys, especially after the administration of IV contrast. Lactic acidosis is getting much better and is probably related to his initial loss of consciousness. Again, he is on heparin for DVT prophylaxis. I will put him on Pepcid for GI prophylaxis. Flu and pneumonia vaccination will be addressed per protocol. Thank you very much for the consult. We will follow along and make further recommendations as picture progresses/becomes clearer. He is critically ill on life-sustaining interventions including the 100% supplemental oxygen, at very high risk of from cardiopulmonary system, and neurologic system decompensation. At this time, I spent about 35-40 minutes of critical care time without overlap and excluding any procedural time that may be necessary. He is a little bit more compliant and back in bed now. TID: [id number] RECEIPT: [id number] ZAID/JAH/CARINE
[2021-01-06] MEDS: CHOLECALCIFEROL (VIT D3) 400 UNIT TAB PO SCH (10:35)
[2021-01-06] MEDS: FAMOTIDINE 20 MG/2 ML INJ IV SCH (10:35)
[2021-01-06] MEDS: HEPARIN 5,000 UNIT/1 ML VIAL SUB-Q SCH ×3 (10:35→21:59)
[2021-01-06 11:16] LABS: Band Neutrophils # (Manual) 2.7 K/mm3; Myelocytes # (Manual) 0.5 K/mm3; Total Cells Counted 100
[2021-01-06 11:17] LABS: Large Platelets Few; Platelet Estimate Consistent w Auto
--- NOTE | 2021-01-06 11:19 | Consultation ---
History of Present Illness - Reason for Consult Consult date: 01/06/21 pneumonia Requesting physician: LALA ADAMS - History of Present Illness The patient is a 65-year-old male with BPH was found down unresponsive in the physician tariq. 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 Chest x-ray revealed aspiration versus COVID-19 infection. Infectious diseases was consulted for additional evaluation. Currently admitted to [facility], low-grade fevers present. Labs on admission revealed WBC 9.1, platelets 137, D- dimer 1795, lactic acidosis of 10.8, CRP 0.0, ferritin 201. Awake and alert, back to baseline mental status. Denies feeling sick prior to this episode. Doesn't recollect much. Has been vaccinated against COVID-19, not received booster yet. No previous history of seizures according to patient. Cough and shortness of breath present, on high flow nasal cannula at this point. Review of Systems: General: no fevers,chills or rigors HEENT: no new visual disturbance Respiratory: Cough, shortness of breath cardiovascular: No chest pain, syncope Gastrointestinal: No nausea, vomiting or diarrhea Genitourinary: No dysuria or hematuria Musculoskeletal: No new or worsening neck pain or back pain Neurologic: No headaches, + for new seizures Hematologic: No easy bruising or bleeding Endocrine: No night sweats or acute weight loss Skin: negative for rash, jaundice Psychiatric: No suicidal or homicidal ideation Past History Past Medical History: other (See HPI) Past Surgical History: No surgical history, Other (See HPI) Social history: single. denies: smoking, alcohol abuse, prescription drug abuse Family history: no significant family history, other (See HPI) Medications and Allergies Allergies Allergy/AdvReac Type Severity Reaction Status Date / Time No Known Allergies Allergy Unverified 11/25/19 05:53 Home Medications Medication Instructions Recorded Confirmed Last Taken Type No Known Home Medications [No 01/06/21 01/06/21 Unknown History Reported Home Medications] Active Meds: Active Medications Acetaminophen (Acetaminophen 325 Mg Tab) 650 mg PO Q6H PRN PRN Reason: Pain MILD(1-3)/Fever >100.5/ROPER Last Admin: 01/06/21 05:53 Dose: 650 mg Documented by: Albuterol (Albuterol 2.5 Mg/3 Ml Nebu) 2.5 mg IH Q3HRT PRN PRN Reason: Shortness Of Breath Ascorbic Acid (Ascorbic Acid 500 Mg Tab) 500 mg PO BID [facility] Last Admin: 01/06/21 10:35 Dose: 500 mg Documented by: Cholecalciferol (Cholecalciferol (Vit D3) 400 Unit Tab) 1,000 unit PO QDAY [facility] Last Admin: 01/06/21 10:35 Dose: 1,000 unit Documented by: Famotidine (Famotidine 20 Mg/2 Ml Inj) 20 mg IV QDAY [facility] Last Admin: 01/06/21 10:35 Dose: 20 mg Documented by: Heparin Sodium (Porcine) (Heparin 5,000 Unit/1 Ml Vial) 5,000 unit SUB-Q Q12HR [facility] Last Admin: 01/06/21 10:59 Dose: Not Given Documented by: Hydromorphone HCl (Hydromorphone 1 Mg/1 Ml Inj) 0.5 mg IV Q23H PRN PRN Reason: Pain , Severe (7-10) Cefepime HCl (Cefepime/Ns 2 Gm/100 Ml) 2 gm in 100 mls @ 200 mls/hr IV Q8H [facility]; Protocol Last Admin: 01/06/21 10:35 Dose: 200 mls/hr Documented by: Metronidazole (Flagyl 500 Mg/100 Ml) 500 mg in 100 mls @ 100 mls/hr IV Q8H [facility]; Protocol Last Admin: 01/06/21 10:35 Dose: 100 mls/hr Documented by: Dexmedetomidine HCl 200 mcg/ (Sodium Chloride) 50 mls @ 3.742 mls/hr IV TITRATE [facility]; Protocol Methylprednisolone Sodium Succinate (Methylprednisolone Sod Succinate 40 Mg/1 Ml Inj) 40 mg IV Q8HR [facility] Last Admin: 01/06/21 05:50 Dose: 40 mg Documented by: Oxycodone/Acetaminophen (Oxycodone /Acetaminophen 5-325mg Tab) 1 tab PO Q16H PRN PRN Reason: Pain, Moderate (4-6) Pneumococcal Polyvalent Vaccine (Pneumococcal 23 Valent 0.5 Ml Vial) 0.5 ml IM .ONCE ONE Stop: 01/06/21 12:01 Sodium Bicarbonate (Sodium Bicarb 8.4% 50 Meq/50 Ml Syringe) 50 meq IV Q8H [facility] Stop: 01/06/21 18:47 Last Admin: 01/06/21 04:43 Dose: 50 meq Documented by: Sodium Chloride (Sodium Chloride 0.9% 10 Ml Flush Syringe) 10 ml IV BID [facility] Last Admin: 01/06/21 10:36 Dose: 10 ml Documented by: Sodium Chloride (Sodium Chloride 0.9% 10 Ml Flush Syringe) 10 ml IV PRN PRN PRN Reason: LINE FLUSH Zinc Sulfate (Zinc Sulfate 220 Mg Cap) 220 mg PO BID [facility] Last Admin: 01/06/21 10:35 Dose: 220 mg Documented by: Physical Examination - Physical Exam Narrative exam: Physical Exam: Constitutional: Alert, cooperative. No acute distress Head, Ears, Nose: Normocephalic, atraumatic. External ears, nose normal Eyes: Conjunctivae/corneas clear. No icterus. No ptosis. Neck: Supple, no meningeal signs Cardiovascular: S1, S2 + Respiratory: few crackles b/l GI: Soft, non-tender; bowel sounds normal. No peritoneal signs Musculoskeletal: No pedal edema, no cyanosis. Skin: No rash or abscess Hem/Lymphatic: No palpable cervical or supraclavicular nodes. No lymphangitis Psych: Mood ok. Affect normal Neurological: Awake, alert, oriented. No gross abnormality - Constitutional Vitals: Vital Signs Temp Pulse Resp BP Pulse Ox 98.4 F 69 27 H 139/79 99 01/06/21 07:19 01/06/21 10:00 01/06/21 10:00 01/06/21 10:00 01/06/21 10:08 Temperature -Last 24 Hours Temperature 98.4 F Temperature 100.9 F Temperature 100.6 F Temperature 99.2 F Results - Labs CBC & Chem 7: 01/06/21 05:06 01/06/21 05:06 Labs: Abnormal lab results 01/05/21 01/05/21 01/05/21 Range/Units 15:47 15:47 15:47 WBC (4.5-11.0) K/mm3 MCV 99 H (84-94) fl RDW (13.2-15.2) % Plt Count 137 L (140-440) K/mm3 Seg Neuts % (Manual) 80.0 H (40.0-70.0) % Lymphocytes % (Manual) 10.0 L (13.4-35.0) % Lymphocytes # (Manual) 0.9 L (1.2-5.4) K/mm3 D-Dimer (0-234) ng/mlDDU ABG pO2 (80.0-90.0) mm Hg ABG Hemoglobin (14.0-18.0) gm/dl Chloride (98-107) mmol/L Carbon Dioxide 15 L (22-30) mmol/L Glucose 117 H (75-100) mg/dL Lactic Acid 10.80 H* (0.7-2.0) mmol/L Calcium (8.4-10.2) mg/dL Phosphorus (2.5-4.5) mg/dL Lactate Dehydrogenase (91-180) units/L Total Protein (6.3-8.2) g/dL Albumin (3.9-5) g/dL 01/05/21 01/05/21 01/05/21 Range/Units 17:20 17:20 17:20 WBC (4.5-11.0) K/mm3 MCV (84-94) fl RDW (13.2-15.2) % Plt Count (140-440) K/mm3 Seg Neuts % (Manual) (40.0-70.0) % Lymphocytes % (Manual) (13.4-35.0) % Lymphocytes # (Manual) (1.2-5.4) K/mm3 D-Dimer 1795.74 H (0-234) ng/mlDDU ABG pO2 (80.0-90.0) mm Hg ABG Hemoglobin (14.0-18.0) gm/dl Chloride (98-107) mmol/L Carbon Dioxide (22-30) mmol/L Glucose (75-100) mg/dL Lactic Acid 3.40 H* (0.7-2.0) mmol/L Calcium (8.4-10.2) mg/dL Phosphorus (2.5-4.5) mg/dL Lactate Dehydrogenase 202 H (91-180) units/L Total Protein (6.3-8.2) g/dL Albumin (3.9-5) g/dL 01/05/21 01/05/21 01/06/21 Range/Units 17:20 21:45 05:06 WBC 16.0 H (4.5-11.0) K/mm3 MCV 97 H (84-94) fl RDW 13.0 L (13.2-15.2) % Plt Count 121 L (140-440) K/mm3 Seg Neuts % (Manual) (40.0-70.0) % Lymphocytes % (Manual) (13.4-35.0) % Lymphocytes # (Manual) (1.2-5.4) K/mm3 D-Dimer (0-234) ng/mlDDU ABG pO2 107.6 H (80.0-90.0) mm Hg ABG Hemoglobin 12.9 L (14.0-18.0) gm/dl Chloride (98-107) mmol/L Carbon Dioxide (22-30) mmol/L Glucose (75-100) mg/dL Lactic Acid (0.7-2.0) mmol/L Calcium (8.4-10.2) mg/dL Phosphorus 1.30 L (2.5-4.5) mg/dL Lactate Dehydrogenase (91-180) units/L Total Protein (6.3-8.2) g/dL Albumin (3.9-5) g/dL 01/06/21 Range/Units 05:06 WBC (4.5-11.0) K/mm3 MCV (84-94) fl RDW (13.2-15.2) % Plt Count (140-440) K/mm3 Seg Neuts % (Manual) (40.0-70.0) % Lymphocytes % (Manual) (13.4-35.0) % Lymphocytes # (Manual) (1.2-5.4) K/mm3 D-Dimer (0-234) ng/mlDDU ABG pO2 (80.0-90.0) mm Hg ABG Hemoglobin (14.0-18.0) gm/dl Chloride 108.5 H (98-107) mmol/L Carbon Dioxide (22-30) mmol/L Glucose 129 H (75-100) mg/dL Lactic Acid (0.7-2.0) mmol/L Calcium 8.3 L (8.4-10.2) mg/dL Phosphorus (2.5-4.5) mg/dL Lactate Dehydrogenase (91-180) units/L Total Protein 6.0 L (6.3-8.2) g/dL Albumin 3.3 L (3.9-5) g/dL - Imaging and Cardiology Chest x-ray: report reviewed, image reviewed (b/l pneumonia) Assessment and Plan Cultures: COVID-19 PCR: Pending 01/05/2021 blood culture: In process A/P: 65-year-old male with BPH was found down unresponsive in the physician lounge. 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 CTA negative for pulmonary embolism, showed bilateral pneumonia. Possible aspiration. Fully vaccinated against COVID (did not receive booster). CRP is 0.0, COVID seems somewhat less likely. #Acute hypoxic resp failure: on HFNC. #Acute encephalopathy: improved. #Urinary tox: Positive for THC #New onset seizures: Consider neurology evaluation along with MRI brain. CT head without acute abnormality. Recs: -Follow-up COVID-19 PCR, procalcitonin -Empiric cefepime, azithromycin, vancomycin for now -Flagyl discontinued -If COVID-19 PCR is positive, initiate remdesivir -on steroids per pulm -Consider neurology evaluation, MRI brain -Legionella, Pneumococcal Ur antigens ordered Leeanna Calero MD, FACP [facility] O: [phone] F: [phone]
[2021-01-06] MEDS ORDERED: VANCOMYCIN 1,000 MG in SODIUM CHLORIDE 0.9% 500 ML 500 ML IV ONE (11:20)
[2021-01-06] MEDS ORDERED: VANCOMYCIN PHARMACY TO DOSE IV SCH (12:00)
[2021-01-06] MEDS ORDERED: PNEUMOCOCCAL 23 Valent 0.5 ML VIAL IM ONE (12:00)
[2021-01-06] MEDS ORDERED: FLU VACC QUAD 2021-22(6MOS UP)/PF 60 MCG/0.5 ML SYRINGE IM ONE (12:00)
[2021-01-06] MEDS ORDERED: CEFEPIME/NS 2 GM/100 ML 2 GM/100 ML BAG IV SCH (12:00)
--- NOTE | 2021-01-06 13:29 | Vascular Lab Report ---
DUPLEX DOPPLER LOWER EXTREMITY VEINS, BILATERAL INDICATION / CLINICAL INFORMATION: Pain in lower extremities. Hypoxemia. Suspected COVID 19. TECHNIQUE: Duplex doppler imaging was performed through the veins of both lower extremities using venous zakiya jerald and other maneuvers. COMPARISON: None available. FINDINGS: RIGHT COMMON FEMORAL VEIN: Negative. RIGHT FEMORAL VEIN: Negative. RIGHT POPLITEAL VEIN: Negative. RIGHT CALF VEINS: Negative. LEFT COMMON FEMORAL VEIN: Negative. LEFT FEMORAL VEIN: Negative. LEFT POPLITEAL VEIN: Negative. LEFT CALF VEINS: Negative. ADDITIONAL FINDINGS: None. IMPRESSION: 1. No sonographic evidence for DVT in either lower extremity. Signer Name: Manpreet Turner MD Signed: 01/06/2021 1:25 PM Workstation Name: [id number]
--- NOTE | 2021-01-06 14:21 | Electrocardiograph Report ---
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
[2021-01-06] MEDS ORDERED: VANCOMYCIN 1,500 MG in SODIUM CHLORIDE 0.9% 500 ML 500 ML IV ONE (14:30)
--- NOTE | 2021-01-06 15:40 | Progress Note ---
Assessment and Plan Assessment and plan: -- Acute hypoxemic respiratory failure Current Visit: Yes Status: Acute High flow nasal cannula oxygen 30 L/80% FiO2/99 O2 sats In mild distress --Seizures Current Visit: Yes Status: Acute Antiepileptic therapy, Keppra therapy, supportive care, seizure precautions, neurochecks. Neurology consulted, CT head without contrast no acute abnormality EEG and possible MRI if needed -- Metabolic acidosis Current Visit: Yes Status: Acute BMP, IV bicarbonate therapy, repeat BMP in a.m. --Metabolic encephalopathy Current Visit: Yes Status: Acute CT head, neuro check, seizure precaution, aspiration precautions --PUI/silva PCR test is negative Current Visit: Yes Status: Acute Patient received vaccination --Elevated D-dimers; Current Visit: Yes Status: Acute CTA chest negative for PE Lower extremity venous Doppler negative for DVT. -- Pneumonia/possible aspiration pneumonia Current Visit: Yes Status: Acute ID evaluation noted and appreciated Continue Vanco, Rocephin and Zithromax Follow cultures, continue oxygen titrate O2 sats to more than 90% Home O2 evaluation for possible home oxygen at discharge -- DVT prophylaxis Current Visit: Yes Status: Acute SCD to bilateral lower extremities while in bed, prophylactic anticoagulation --Advance care planning Current Visit: Yes Status: Acute Disease education conducted, care plan discussed, diagnoses discussed, patient is full code, +30 minutes. We will closely monitor the patient and adjust management as needed 01/06/2021; Silva PCR test is negative Elevated D-dimers negative PE negative DVT Severe hypoxemia requiring high flow nasal cannula oxygen 30 L. 80% FiO2 Wean as tolerated, Syncope work-up in progress Follow-up neurology evaluation recommendations History Interval history: 65-year-old male patient was found unresponsive in the physician's lounge was admitted through emergency room with syncopal episode and generalized seizures patient was noted to be hypoxic requiring high flow nasal cannula oxygen/BiPAP and is admitted to [facility] Silva PCR test done today was negative, chest x-ray show multifocal pneumonia probably aspiration pneumonia, ID has evaluated the patient and placed on multiple antibiotics Vanco, Rocephin and Zithromax. I have seen the patient from a distance as patient is sleeping and on BiPAP Agree with the physical examination of the nurse and ID Hospitalist Physical - Physical exam Narrative exam: I have evaluated the patient from a distance - Constitutional Vitals: Temp Pulse Resp BP Pulse Ox 98.2 F 69 24 124/72 97 01/06/21 12:00 01/06/21 15:00 01/06/21 15:00 01/06/21 15:00 01/06/21 15:00 General appearance: Present: mild distress, other (HFNC 30 L /80% FiO2 and 99% O2 sat) HEART Score - HEART Score Troponin: Troponin T < 0.010 ng/mL (0.00-0.029) 01/05/21 16:11 Results - Labs CBC & Chem 7: 01/06/21 05:06 01/06/21 05:06 Labs: Laboratory Last Values WBC 16.0 K/mm3 (4.5-11.0) H 01/06/21 05:06 RBC 4.03 M/mm3 (3.65-5.03) 01/06/21 05:06 Hgb 12.8 gm/dl (11.8-15.2) 01/06/21 05:06 Hct 39.1 % (35.5-45.6) 01/06/21 05:06 MCV 97 fl (84-94) H 01/06/21 05:06 MCH 32 pg (28-32) 01/06/21 05:06 MCHC 33 % (32-34) 01/06/21 05:06 RDW 13.0 % (13.2-15.2) L 01/06/21 05:06 Plt Count 121 K/mm3 (140-440) L 01/06/21 05:06 Add Manual Diff Complete 01/06/21 05:06 Total Counted 100 01/06/21 05:06 Seg Neutrophils % Glass Etcher Helper 01/06/21 05:06 Seg Neuts % (Manual) 58.0 % (40.0-70.0) 01/06/21 05:06 Band Neutrophils % 17.0 % 01/06/21 05:06 Lymphocytes % (Manual) 9.0 % (13.4-35.0) L 01/06/21 05:06 Monocytes % (Manual) 2.0 % (0.0-7.3) 01/06/21 05:06 Metamyelocytes % 11.0 % 01/06/21 05:06 Myelocytes % 3.0 % 01/06/21 05:06 Promyelocytes % 1.0 % 01/05/21 15:47 Nucleated RBC % Not Reportable 01/06/21 05:06 Seg Neutrophils # Man 9.3 K/mm3 (1.8-7.7) H 01/06/21 05:06 Band Neutrophils # 2.7 K/mm3 01/06/21 05:06 Lymphocytes # (Manual) 1.4 K/mm3 (1.2-5.4) 01/06/21 05:06 Abs React Lymphs (Man) 0.0 K/mm3 01/06/21 05:06 Monocytes # (Manual) 0.3 K/mm3 (0.0-0.8) 01/06/21 05:06 Eosinophils # (Manual) 0.0 K/mm3 (0.0-0.4) 01/06/21 05:06 Basophils # (Manual) 0.0 K/mm3 (0.0-0.1) 01/06/21 05:06 Metamyelocytes # 1.8 K/mm3 01/06/21 05:06 Myelocytes # 0.5 K/mm3 01/06/21 05:06 Promyelocytes # 0.0 K/mm3 01/06/21 05:06 Blast Cells # 0.0 K/mm3 01/06/21 05:06 WBC Morphology Not Reportable 01/06/21 05:06 Hypersegmented Neuts Not Reportable 01/06/21 05:06 Hyposegmented Neuts Not Reportable 01/06/21 05:06 Hypogranular Neuts Not Reportable 01/06/21 05:06 Smudge Cells Not Reportable 01/06/21 05:06 Toxic Granulation Not Reportable 01/06/21 05:06 Toxic Vacuolation Not Reportable 01/06/21 05:06 Dohle Bodies Not Reportable 01/06/21 05:06 Pelger-Huet Anomaly Not Reportable 01/06/21 05:06 Lana Rods Not Reportable 01/06/21 05:06 Platelet Estimate Consistent w auto 01/06/21 05:06 Clumped Platelets Not Reportable 01/06/21 05:06 Plt Clumps, EDTA Not Reportable 01/06/21 05:06 Large Platelets Few 01/06/21 05:06 Giant Platelets Not Reportable 01/06/21 05:06 Platelet Satelliting Not Reportable 01/06/21 05:06 Plt Morphology Comment Platelet clumping 01/06/21 05:06 RBC Morphology Not Reportable 01/06/21 05:06 Dimorphic RBCs Not Reportable 01/06/21 05:06 Polychromasia Not Reportable 01/06/21 05:06 Hypochromasia Not Reportable 01/06/21 05:06 Poikilocytosis Not Reportable 01/06/21 05:06 Anisocytosis Not Reportable 01/06/21 05:06 Microcytosis Not Reportable 01/06/21 05:06 Macrocytosis Not Reportable 01/06/21 05:06 Spherocytes Not Reportable 01/06/21 05:06 Pappenheimer Bodies Not Reportable 01/06/21 05:06 Sickle Cells Not Reportable 01/06/21 05:06 Target Cells Not Reportable 01/06/21 05:06 Tear Drop Cells Not Reportable 01/06/21 05:06 Ovalocytes Not Reportable 01/06/21 05:06 Helmet Cells Not Reportable 01/06/21 05:06 Ruano-Ballplay Bodies Not Reportable 01/06/21 05:06 [place] Rings Not Reportable 01/06/21 05:06 [place] Cells Not Reportable 01/06/21 05:06 Bite Cells Not Reportable 01/06/21 05:06 Crenated Cell Not Reportable 01/06/21 05:06 Elliptocytes Not Reportable 01/06/21 05:06 Acanthocytes (Spur) Not Reportable 01/06/21 05:06 Rouleaux Not Reportable 01/06/21 05:06 Hemoglobin C Crystals Not Reportable 01/06/21 05:06 Schistocytes Not Reportable 01/06/21 05:06 Malaria parasites Not Reportable 01/06/21 05:06 Alex Bodies Not Reportable 01/06/21 05:06 Hem Pathologist Commnt No 01/06/21 05:06 D-Dimer 1795.74 ng/mlDDU (0-234) H 01/05/21 17:20 ABG pH 7.387 pH Units (7.350-7.450) 01/05/21 21:45 ABG pCO2 41.0 mm Hg 01/05/21 21:45 ABG pO2 107.6 mm Hg (80.0-90.0) H 01/05/21 21:45 ABG HCO3 24.1 mmol/L (20.0-26.0) 01/05/21 21:45 ABG O2 Saturation 97.9 % (95.0-99.0) 01/05/21 21:45 ABG O2 Content 17.6 (0.0-44) 01/05/21 21:45 ABG Base Excess -0.9 mmol/L (-2.0-3.0) 01/05/21 21:45 ABG Hemoglobin 12.9 gm/dl (14.0-18.0) L 01/05/21 21:45 ABG Carboxyhemoglobin 1.4 % (0.0-5.0) 01/05/21 21:45 ABG Methemoglobin 0.4 % (0.0-1.5) 01/05/21 21:45 Oxyhemoglobin 96.1 % (95.0-99.0) 01/05/21 21:45 FiO2 100 % 01/05/21 21:45 Sodium 144 mmol/L (137-145) 01/06/21 05:06 Potassium 4.1 mmol/L (3.6-5.0) 01/06/21 05:06 Chloride 108.5 mmol/L (98-107) H 01/06/21 05:06 Carbon Dioxide 25 mmol/L (22-30) D 01/06/21 05:06 Anion Gap 15 mmol/L 01/06/21 05:06 BUN 19 mg/dL (9-20) 01/06/21 05:06 Creatinine 0.8 mg/dL (0.8-1.3) 01/06/21 05:06 Estimated GFR > 60 ml/min 01/06/21 05:06 BUN/Creatinine Ratio 24 % 01/06/21 05:06 Glucose 129 mg/dL (75-100) H 01/06/21 05:06 Lactic Acid 3.40 mmol/L (0.7-2.0) H* 01/05/21 17:20 Calcium 8.3 mg/dL (8.4-10.2) L 01/06/21 05:06 Phosphorus 1.30 mg/dL (2.5-4.5) L 01/05/21 17:20 Magnesium 1.80 mg/dL (1.7-2.3) 01/05/21 17:20 Ferritin 201.5 ng/mL (30.0-300.0) 01/05/21 17:20 Total Bilirubin 1.10 mg/dL (0.1-1.2) 01/06/21 05:06 AST 21 units/L (5-40) 01/06/21 05:06 ALT 16 units/L (7-56) 01/06/21 05:06 Alkaline Phosphatase 73 units/L (35-129) 01/06/21 05:06 Lactate Dehydrogenase 202 units/L (91-180) H 01/05/21 17:20 Troponin T < 0.010 ng/mL (0.00-0.029) 01/05/21 16:11 C-Reactive Protein 0.00 mg/dL (0.00-1.30) 01/05/21 17:20 Total Protein 6.0 g/dL (6.3-8.2) L 01/06/21 05:06 Albumin 3.3 g/dL (3.9-5) L 01/06/21 05:06 Albumin/Globulin Ratio 1.2 % 01/06/21 05:06 Urine Color Yellow (Yellow) 01/05/21 Unknown Urine Turbidity Clear (Clear) 01/05/21 Unknown Urine pH 5.0 (5.0-7.0) 01/05/21 Unknown Ur Specific [place] 1.020 (1.003-1.030) 01/05/21 Unknown Urine Protein 100 mg/dl mg/dL (Negative) 01/05/21 Unknown Urine Glucose (UA) Neg mg/dL (Negative) 01/05/21 Unknown Urine Ketones Tr mg/dL (Negative) 01/05/21 Unknown Urine Blood Neg (Negative) 01/05/21 Unknown Urine Nitrite Neg (Negative) 01/05/21 Unknown Urine Bilirubin Neg (Negative) 01/05/21 Unknown Urine Urobilinogen < 2.0 mg/dL (<2.0) 01/05/21 Unknown Ur Leukocyte Esterase Neg (Negative) 01/05/21 Unknown Urine WBC (Auto) 2.0 /HPF (0.0-6.0) 01/05/21 Unknown Urine RBC (Auto) 2.0 /HPF (0.0-6.0) 01/05/21 Unknown U Epithel Cells (Auto) < 1.0 /HPF (0-13.0) 01/05/21 Unknown Urine Mucus Few /HPF 01/05/21 Unknown Urine Opiates Screen Negative 01/05/21 Unknown Urine Methadone Screen Negative 01/05/21 Unknown Ur Barbiturates Screen Negative 01/05/21 Unknown Ur Phencyclidine Scrn Negative 01/05/21 Unknown Ur Amphetamines Screen Negative 01/05/21 Unknown U Benzodiazepines Scrn Negative 01/05/21 Unknown Urine Cocaine Screen Negative 01/05/21 Unknown U Marijuana (THC) Screen Positive 01/05/21 Unknown Drugs of Abuse Note Disclamer 01/05/21 Unknown Plasma/Serum Alcohol < 0.01 % (0-0.07) 01/05/21 15:47 Coronavirus (PCR) Negative (Negative) 01/06/21 Unknown Microbiology: Microbiology 01/05/21 17:46 Peripheral/Venous Blood Culture - Preliminary Culture in Progress 01/05/21 17:32 Peripheral/Venous Blood Culture - Preliminary Culture in Progress Meza/IV: Voiding Method Urinal Active Medications - Current Medications Current Medications: Generic Name Dose Route Start Last Admin Trade Name Freq PRN Reason Stop Dose Admin Acetaminophen 650 mg 01/05/21 18:33 01/06/21 05:53 Acetaminophen 325 Mg Tab PO 650 mg Q6H PRN Administration Pain MILD(1-3)/Fever >100.5/ROPER Albuterol 2.5 mg 01/05/21 18:33 Albuterol 2.5 Mg/3 Ml Nebu IH Q3HRT PRN Shortness Of Breath Ascorbic Acid 500 mg 01/05/21 22:00 01/06/21 10:35 Ascorbic Acid 500 Mg Tab PO 500 mg BID LEIA Administration Cholecalciferol 1,000 unit 01/06/21 10:00 01/06/21 10:35 Cholecalciferol (Vit D3) 400 Unit Tab PO 1,000 unit QDAY [facility] Administration Famotidine 20 mg 01/06/21 10:00 01/06/21 10:35 Famotidine 20 Mg/2 Ml Inj IV 20 mg QDAY [facility] Administration Heparin Sodium (Porcine) 5,000 unit 01/05/21 22:00 01/06/21 10:59 Heparin 5,000 Unit/1 Ml Vial SUB-Q Not Given Q12HR [facility] Hydromorphone HCl 0.5 mg 01/05/21 18:33 Hydromorphone 1 Mg/1 Ml Inj IV Q23H PRN Pain , Severe (7-10) Dexmedetomidine HCl 200 mcg/ 50 mls @ 3.742 mls/hr 01/05/21 20:00 Sodium Chloride IV TITRATE [facility] Protocol 0.2 MCG/KG/HR Cefepime HCl 2 gm in 100 mls @ 200 mls/hr 01/06/21 12:00 Cefepime/Ns 2 Gm/100 Ml IV Q12H [facility] Protocol Azithromycin 500 mg in 250 mls @ 250 mls/hr 01/06/21 12:00 Zithromax/Ns IV Q24H [facility] Vancomycin HCl 1,500 mg/ 530 mls @ 333.333 mls/hr 01/06/21 14:30 Sodium Chloride IV 01/06/21 16:05 ONCE ONE Vancomycin HCl 1,250 mg/ 275 mls @ 166.667 mls/hr 01/07/21 03:00 Sodium Chloride IV Q12H [facility] Methylprednisolone Sodium Succinate 40 mg 01/05/21 22:00 01/06/21 05:50 Methylprednisolone Sod Succinate 40 Mg/1 Ml Inj IV 40 mg Q8HR [facility] Administration Oxycodone/Acetaminophen 1 tab 01/05/21 18:33 Oxycodone /Acetaminophen 5-325mg Tab PO Q16H PRN Pain, Moderate (4-6) Sodium Bicarbonate 50 meq 01/05/21 19:00 01/06/21 04:43 Sodium Bicarb 8.4% 50 Meq/50 Ml Syringe IV 01/06/21 18:47 50 meq Q8H LEIA Administration Sodium Chloride 10 ml 01/05/21 22:00 01/06/21 10:36 Sodium Chloride 0.9% 10 Ml Flush Syringe IV 10 ml BID LEIA Administration Sodium Chloride 10 ml 01/05/21 18:33 Sodium Chloride 0.9% 10 Ml Flush Syringe IV PRN PRN LINE FLUSH Zinc Sulfate 220 mg 01/05/21 22:00 01/06/21 10:35 Zinc Sulfate 220 Mg Cap PO 220 mg BID LEIA Administration
--- NOTE | 2021-01-06 16:09 | Progress Note ---
Assessment and Plan Acute encephalopathy, possibly toxic metabolic Acute hypoxemic respiratory failure Possible seizures History of benign prostatic hypertrophy Thrombocytopenia Lactic acidosis/metabolic acidosis - neurology evaluation pending - shared his CT chest scan images with him and advised better compliance - will continue to offer qhs BIPAP in short term - continue accuchecks with glycemic control per SSI (While critically ill target blood glucose of 140-180 mg/dL; avoid hypoglycemia) - continue to wean supplemental oxygen for target O2 sat's > 90% acutely - aspiration precautions - continue bronchodilators with pulmonary hygiene per RT - avoid nephrotoxins, renally dose all medications - continue to avoid benzodiazepine's, reduce the possibility of delirium - AB's per ID rec's - prn analgesia per pain score - Maintenance of sleep-wake cycle, avoid delirium - G.I. & VTE prophylaxis - PT/OT/ROM exercises - continue mobility protocols for pressure ulcer prophylaxis - Monitor hemodynamics closely - continue other care per attending / other consultants - discharge planning ongoing concurrently COVID SPECIFIC INTERVENTIONS - COVID-19 tests negative .... Re-evaluate in am & prn CONDITION: CRITICAL PROGNOSIS: GUARDED CODE STATUS: FULL CODE The high probability of a clinically significant, sudden or life-threatening deterioration of the [respiratory, cardiovascular & neurologic] system(s) required my full and direct attention, intervention and personal management. The aggregate critical care time was [35] minutes without overlap. Time includes spent on; [x] Data Review and interpretation [x] Patient assessment and monitoring of vital signs [x] Documentation [x] Medication orders and management Subjective Date of service: 01/06/21 Principal diagnosis: AMS; Acute hypoxemic resp failure; Possible seizures; Thrombocytopenia Interval history: Patient is seen today for: Acute encephalopathy; Acute hypoxemic respiratory failure; Possible seizures; BPH; Thrombocytopenia Seen and examined at bedside; 24hour events reviewed; nursing and respiratory care staff consulted; no adverse overnight events reported to me; resting in bed; FkiO2 down to 75% on HFNC via vapotherm; COVID-19 test result negative; no emesis or overt aspiration; refused BIPAP overnight Objective Vital Signs - 12hr 01/06/21 01/06/21 01/06/21 05:00 05:16 05:20 Temperature Pulse Rate 68 81 Pulse Rate [ 73 Right Brachial] Respiratory 28 H 22 40 H Rate Blood Pressure 140/77 O2 Sat by Pulse 94 95 84 Oximetry 01/06/21 01/06/21 01/06/21 05:30 05:53 06:00 Temperature Pulse Rate 71 71 Pulse Rate [ Right Brachial] Respiratory 27 H 24 21 Rate Blood Pressure 141/80 O2 Sat by Pulse 92 94 Oximetry 01/06/21 01/06/21 01/06/21 06:09 06:30 07:00 Temperature Pulse Rate 73 72 Pulse Rate [ Right Brachial] Respiratory 31 H 35 H Rate Blood Pressure 141/80 148/81 O2 Sat by Pulse 98 99 92 Oximetry 01/06/21 01/06/21 01/06/21 07:19 07:30 08:00 Temperature 98.4 F Pulse Rate 78 83 Pulse Rate [ Right Brachial] Respiratory 32 H 18 Rate Blood Pressure 148/81 148/81 O2 Sat by Pulse 93 86 Oximetry 01/06/21 01/06/21 01/06/21 08:30 09:00 09:30 Temperature Pulse Rate 74 73 66 Pulse Rate [ Right Brachial] Respiratory 31 H 31 H 24 Rate Blood Pressure 132/78 132/79 132/79 O2 Sat by Pulse 86 88 Oximetry 01/06/21 01/06/21 01/06/21 09:50 10:00 10:08 Temperature Pulse Rate 70 Pulse Rate [ Right Brachial] Respiratory 20 Rate Blood Pressure 139/79 O2 Sat by Pulse 100 96 99 Oximetry 01/06/21 01/06/21 01/06/21 10:30 11:00 11:30 Temperature Pulse Rate 68 71 68 Pulse Rate [ Right Brachial] Respiratory 27 H 29 H 25 H Rate Blood Pressure 139/79 135/82 135/82 O2 Sat by Pulse 91 94 93 Oximetry 01/06/21 01/06/21 01/06/21 12:00 12:30 13:00 Temperature 98.2 F Pulse Rate 71 76 75 Pulse Rate [ Right Brachial] Respiratory 26 H 18 27 H Rate Blood Pressure 128/83 128/83 128/81 O2 Sat by Pulse 96 96 90 Oximetry 01/06/21 01/06/21 01/06/21 13:30 14:00 14:30 Temperature Pulse Rate 75 58 L 62 Pulse Rate [ Right Brachial] Respiratory 26 H 26 H 28 H Rate Blood Pressure 128/81 134/77 134/77 O2 Sat by Pulse 92 97 98 Oximetry 01/06/21 15:00 Temperature Pulse Rate 69 Pulse Rate [ Right Brachial] Respiratory 24 Rate Blood Pressure 124/72 O2 Sat by Pulse 97 Oximetry Constitutional: no acute distress, other (elderly male with mildly increased respiratory effort at rest) Eyes: non-icteric ENT: oropharynx moist Neck: supple, no lymphadenopathy, no JVD Effort: mildly labored Ascultation: Bilateral: rales Percussion: Bilateral: not dull Cardiovascular: regular rate and rhythm Gastrointestinal: normoactive bowel sounds, soft, non-tender, non-distended Integumentary: normal Extremities: no cyanosis, no edema, pulses normal, no ischemia or petechiae Neurologic: normal mental status, non-focal exam, pupils equal and round, motor strength normal and Psychiatric: mood appropriate, affect normal CBC and BMP: 01/06/21 05:06 01/06/21 05:06 ABG, PT/INR, D-dimer: ABG ABG pH 7.387 pH Units (7.350-7.450) 01/05/21 21:45 ABG pCO2 41.0 mm Hg 01/05/21 21:45 ABG pO2 107.6 mm Hg (80.0-90.0) H 01/05/21 21:45 ABG O2 Saturation 97.9 % (95.0-99.0) 01/05/21 21:45 PT/INR, D-dimer D-Dimer 1795.74 ng/mlDDU (0-234) H 01/05/21 17:20 Abnormal lab findings: Abnormal Labs 01/05/21 01/05/21 01/05/21 15:47 15:47 15:47 WBC MCV 99 H RDW Plt Count 137 L Seg Neuts % (Manual) 80.0 H Lymphocytes % (Manual) 10.0 L Seg Neutrophils # Man Lymphocytes # (Manual) 0.9 L D-Dimer ABG pO2 ABG Hemoglobin Chloride Carbon Dioxide 15 L Glucose 117 H Lactic Acid 10.80 H* Calcium Phosphorus Lactate Dehydrogenase Total Protein Albumin 01/05/21 01/05/21 01/05/21 17:20 17:20 17:20 WBC MCV RDW Plt Count Seg Neuts % (Manual) Lymphocytes % (Manual) Seg Neutrophils # Man Lymphocytes # (Manual) D-Dimer 1795.74 H ABG pO2 ABG Hemoglobin Chloride Carbon Dioxide Glucose Lactic Acid 3.40 H* Calcium Phosphorus Lactate Dehydrogenase 202 H Total Protein Albumin 10/01/05/21 01/06/21 17:20 21:45 05:06 WBC 16.0 H MCV 97 H RDW 13.0 L Plt Count 121 L Seg Neuts % (Manual) Lymphocytes % (Manual) 9.0 L Seg Neutrophils # Man 9.3 H Lymphocytes # (Manual) D-Dimer ABG pO2 107.6 H ABG Hemoglobin 12.9 L Chloride Carbon Dioxide Glucose Lactic Acid Calcium Phosphorus 1.30 L Lactate Dehydrogenase Total Protein Albumin 01/06/21 05:06 WBC MCV RDW Plt Count Seg Neuts % (Manual) Lymphocytes % (Manual) Seg Neutrophils # Man Lymphocytes # (Manual) D-Dimer ABG pO2 ABG Hemoglobin Chloride 108.5 H Carbon Dioxide Glucose 129 H Lactic Acid Calcium 8.3 L Phosphorus Lactate Dehydrogenase Total Protein 6.0 L Albumin 3.[address] scan - chest: image reviewed (dense bilateral pulmonary infiltrates; no VTE) Allied health notes reviewed: nursing
[2021-01-06] MEDS: AZITHROMYCIN/NS 500 MG/250 ML 500 MG/250 ML BAG IV SCH (17:08)
--- NOTE | 2021-01-06 17:28 | Vascular Lab Report ---
DUPLEX DOPPLER ULTRASOUND CAROTID, BILATERAL INDICATION / CLINICAL INFORMATION: Syncope. COMPARISON: None available. FINDINGS: RIGHT CAROTID: - PLAQUE ESTIMATE (%): < 50% - CCA velocity: 101 cm/sec. - ICA peak systolic velocity: 69 cm/sec. - ICA/CCA PSV Ratio: Less than 2 Right Vertebral Artery: Antegrade flow. LEFT CAROTID: - PLAQUE ESTIMATE: < 50% - CCA velocity: 102 cm/sec. - ICA peak systolic velocity: 70 cm/sec. - ICA/CCA PSV Ratio: Less than 2 Left Vertebral Artery: Antegrade flow. IMPRESSION: 1. Right Internal Carotid Artery: Less than 50% diameter stenosis. 2. Left Internal Carotid Artery: Less than 50% diameter stenosis. Velocity criteria are extrapolated from diameter data as defined by the Society of Radiologists in Ul trasound Consensus Conference, Radiology 2003; 229;340-346. NO STENOSIS (NORMAL) * Plaque = none; ICA PSV < 125 cm/sec; ICA/CCA PSV Ratio < 2.0 <50% STENOSIS * Plaque < 50%; ICA PSV < 125 cm/sec; ICA/CCA PSV Ratio < 2.0 50-69% STENOSIS * Plaque > 50%; ICA PSV = 125-230 cm/sec; ICA/CCA PSV Ratio = 2.0-4.0 >70% BUT <100% STENOSIS * Plaque > 50%; ICA PSV > 230 cm/sec; ICA/CCA PSV Ratio > 4.0 NEAR OCCLUSION * Plaque = visible lumen; ICA PSV = high/low/none; ICA/CCA PSV Ratio = variable TOTAL OCCLUSION * Plaque = no lumen; ICA PSV = none; ICA/CCA PSV Ratio = N/A Signer Name: Renan Peterson MD Signed: 01/06/2021 5:24 PM [facility]station Name: [id number]
[2021-01-07] MEDS ORDERED: VANCOMYCIN 1,250 MG in SODIUM CHLORIDE 0.9% 250ML 250 ML IV SCH ×2 (03:00→18:00)
[2021-01-07] MEDS: methylPREDNISolone Sod Succinate 40 MG/1 ML INJ IV SCH ×3 (05:04→21:43)
--- NOTE | 2021-01-07 09:39 | Progress Note ---
Assessment and Plan Assessment and plan: Acute hypoxemic respiratory failure New onset seizure disorder Bilateral aspiration pneumonia. Covid PCR negative Acute encephalopathy. Etiology secondary to metabolic versus postictal from seizure Elevated D-dimer. Negative PE/DVT 01/06/2021; Silva PCR test is negative Elevated D-dimers negative PE negative DVT Severe hypoxemia requiring high flow nasal cannula oxygen 30 L. 80% FiO2 Wean as tolerated, Syncope work-up in progress Follow-up neurology evaluation recommendations 01/07/2021. Patient with high flow nasal cannula 30 L O2 with FiO2 of 70%. Continue to wean oxygen supplementation as tolerated. Encephalopathy has resolved. EEG and MRI ordered for new onset seizure. Continue IV antibiotics for pneumonia. Echocardiogram previously ordered. Await further follow-up testing. Carotid ultrasound negative History Interval history: No new issues overnight Hospitalist Physical - Constitutional Vitals: Temp Pulse Resp BP Pulse Ox 98.2 F 75 27 H 129/83 94 01/07/21 07:31 01/07/21 09:00 01/07/21 09:00 01/07/21 09:00 01/07/21 09:00 General appearance: Present: mild distress, other (HFNC 30 L /80% FiO2 and 99% O2 sat) - EENT Eyes: Present: PERRL, EOM intact ENT: hearing intact, clear oral mucosa, dentition normal - Neck Neck: Present: supple, normal ROM - Respiratory Respiratory effort: normal Respiratory: bilateral: CTA - Cardiovascular Rhythm: regular Heart Sounds: Present: S1 & S2. Absent: gallop, rub - Extremities Extremities: no ischemia, No edema, Full ROM - Abdominal General gastrointestinal: soft, non-tender, non-distended, normal bowel sounds - Integumentary Integumentary: Present: clear, warm, dry - Neurologic Neurologic: CNII-XII intact, moves all extremities HEART Score - HEART Score Troponin: Troponin T < 0.010 ng/mL (0.00-0.029) 01/05/21 16:11 Results - Labs CBC & Chem 7: 01/06/21 05:06 01/06/21 05:06 Labs: Laboratory Last Values WBC 16.0 K/mm3 (4.5-11.0) H 01/06/21 05:06 RBC 4.03 M/mm3 (3.65-5.03) 01/06/21 05:06 Hgb 12.8 gm/dl (11.8-15.2) 01/06/21 05:06 Hct 39.1 % (35.5-45.6) 01/06/21 05:06 MCV 97 fl (84-94) H 01/06/21 05:06 MCH 32 pg (28-32) 01/06/21 05:06 MCHC 33 % (32-34) 01/06/21 05:06 RDW 13.0 % (13.2-15.2) L 01/06/21 05:06 Plt Count 121 K/mm3 (140-440) L 01/06/21 05:06 Add Manual Diff Complete 01/06/21 05:06 Total Counted 100 01/06/21 05:06 Seg Neutrophils % [place] 01/06/21 05:06 Seg Neuts % (Manual) 58.0 % (40.0-70.0) 01/06/21 05:06 Band Neutrophils % 17.0 % 01/06/21 05:06 Lymphocytes % (Manual) 9.0 % (13.4-35.0) L 01/06/21 05:06 Monocytes % (Manual) 2.0 % (0.0-7.3) 01/06/21 05:06 Metamyelocytes % 11.0 % 01/06/21 05:06 Myelocytes % 3.0 % 01/06/21 05:06 Promyelocytes % 1.0 % 01/05/21 15:47 Nucleated RBC % Not Reportable 01/06/21 05:06 Seg Neutrophils # Man 9.3 K/mm3 (1.8-7.7) H 01/06/21 05:06 Band Neutrophils # 2.7 K/mm3 01/06/21 05:06 Lymphocytes # (Manual) 1.4 K/mm3 (1.2-5.4) 01/06/21 05:06 Abs React Lymphs (Man) 0.0 K/mm3 01/06/21 05:06 Monocytes # (Manual) 0.3 K/mm3 (0.0-0.8) 01/06/21 05:06 Eosinophils # (Manual) 0.0 K/mm3 (0.0-0.4) 01/06/21 05:06 Basophils # (Manual) 0.0 K/mm3 (0.0-0.1) 01/06/21 05:06 Metamyelocytes # 1.8 K/mm3 01/06/21 05:06 Myelocytes # 0.5 K/mm3 01/06/21 05:06 Promyelocytes # 0.0 K/mm3 01/06/21 05:06 Blast Cells # 0.0 K/mm3 01/06/21 05:06 WBC Morphology Not Reportable 01/06/21 05:06 Hypersegmented Neuts Not Reportable 01/06/21 05:06 Hyposegmented Neuts Not Reportable 01/06/21 05:06 Hypogranular Neuts Not Reportable 01/06/21 05:06 Smudge Cells Not Reportable 01/06/21 05:06 Toxic Granulation Not Reportable 01/06/21 05:06 Toxic Vacuolation Not Reportable 01/06/21 05:06 Dohle Bodies Not Reportable 01/06/21 05:06 Pelger-Huet Anomaly Not Reportable 01/06/21 05:06 Lana Rods Not Reportable 01/06/21 05:06 Platelet Estimate Consistent w auto 01/06/21 05:06 Clumped Platelets Not Reportable 01/06/21 05:06 Plt Clumps, EDTA Not Reportable 01/06/21 05:06 Large Platelets Few 01/06/21 05:06 Giant Platelets Not Reportable 01/06/21 05:06 Platelet Satelliting Not Reportable 01/06/21 05:06 Plt Morphology Comment Platelet clumping 01/06/21 05:06 RBC Morphology Not Reportable 01/06/21 05:06 Dimorphic RBCs Not Reportable 01/06/21 05:06 Polychromasia Not Reportable 01/06/21 05:06 Hypochromasia Not Reportable 01/06/21 05:06 Poikilocytosis Not Reportable 01/06/21 05:06 Anisocytosis Not Reportable 01/06/21 05:06 Microcytosis Not Reportable 01/06/21 05:06 Macrocytosis Not Reportable 01/06/21 05:06 Spherocytes Not Reportable 01/06/21 05:06 Pappenheimer Bodies Not Reportable 01/06/21 05:06 Sickle Cells Not Reportable 01/06/21 05:06 Target Cells Not Reportable 01/06/21 05:06 Tear Drop Cells Not Reportable 01/06/21 05:06 Ovalocytes Not Reportable 01/06/21 05:06 Helmet Cells Not Reportable 01/06/21 05:06 [place] Bodies Not Reportable 01/06/21 05:06 [place] Rings Not Reportable 01/06/21 05:06 [place] Cells Not Reportable 01/06/21 05:06 Bite Cells Not Reportable 01/06/21 05:06 Crenated Cell Not Reportable 01/06/21 05:06 Elliptocytes Not Reportable 01/06/21 05:06 Acanthocytes (Spur) Not Reportable 01/06/21 05:06 Rouleaux Not Reportable 01/06/21 05:06 Hemoglobin C Crystals Not Reportable 01/06/21 05:06 Schistocytes Not Reportable 01/06/21 05:06 Malaria parasites Not Reportable 01/06/21 05:06 Alex Bodies Not Reportable 01/06/21 05:06 Hem Pathologist Commnt No 01/06/21 05:06 D-Dimer 1795.74 ng/mlDDU (0-234) H 01/05/21 17:20 ABG pH 7.387 pH Units (7.350-7.450) 01/05/21 21:45 ABG pCO2 41.0 mm Hg 01/05/21 21:45 ABG pO2 107.6 mm Hg (80.0-90.0) H 01/05/21 21:45 ABG HCO3 24.1 mmol/L (20.0-26.0) 01/05/21 21:45 ABG O2 Saturation 97.9 % (95.0-99.0) 01/05/21 21:45 ABG O2 Content 17.6 (0.0-44) 01/05/21 21:45 ABG Base Excess -0.9 mmol/L (-2.0-3.0) 01/05/21 21:45 ABG Hemoglobin 12.9 gm/dl (14.0-18.0) L 01/05/21 21:45 ABG Carboxyhemoglobin 1.4 % (0.0-5.0) 01/05/21 21:45 ABG Methemoglobin 0.4 % (0.0-1.5) 01/05/21 21:45 Oxyhemoglobin 96.1 % (95.0-99.0) 01/05/21 21:45 FiO2 100 % 01/05/21 21:45 Sodium 144 mmol/L (137-145) 01/06/21 05:06 Potassium 4.1 mmol/L (3.6-5.0) 01/06/21 05:06 Chloride 108.5 mmol/L (98-107) H 01/06/21 05:06 Carbon Dioxide 25 mmol/L (22-30) D 01/06/21 05:06 Anion Gap 15 mmol/L 01/06/21 05:06 BUN 19 mg/dL (9-20) 01/06/21 05:06 Creatinine 0.8 mg/dL (0.8-1.3) 01/06/21 05:06 Estimated GFR > 60 ml/min 01/06/21 05:06 BUN/Creatinine Ratio 24 % 01/06/21 05:06 Glucose 129 mg/dL (75-100) H 01/06/21 05:06 Lactic Acid 1.20 mmol/L (0.7-2.0) 01/07/21 05:26 Calcium 8.3 mg/dL (8.4-10.2) L 01/06/21 05:06 Phosphorus 1.30 mg/dL (2.5-4.5) L 01/05/21 17:20 Magnesium 1.80 mg/dL (1.7-2.3) 01/05/21 17:20 Ferritin 201.5 ng/mL (30.0-300.0) 01/05/21 17:20 Total Bilirubin 1.10 mg/dL (0.1-1.2) 01/06/21 05:06 AST 21 units/L (5-40) 01/06/21 05:06 ALT 16 units/L (7-56) 01/06/21 05:06 Alkaline Phosphatase 73 units/L (35-129) 01/06/21 05:06 Lactate Dehydrogenase 202 units/L (91-180) H 01/05/21 17:20 Troponin T < 0.010 ng/mL (0.00-0.029) 01/05/21 16:11 C-Reactive Protein 0.00 mg/dL (0.00-1.30) 01/05/21 17:20 Total Protein 6.0 g/dL (6.3-8.2) L 01/06/21 05:06 Albumin 3.3 g/dL (3.9-5) L 01/06/21 05:06 Albumin/Globulin Ratio 1.2 % 01/06/21 05:06 Urine Color Yellow (Yellow) 01/05/21 Unknown Urine Turbidity Clear (Clear) 01/05/21 Unknown Urine pH 5.0 (5.0-7.0) 01/05/21 Unknown Ur Specific [place] 1.020 (1.003-1.030) 01/05/21 Unknown Urine Protein 100 mg/dl mg/dL (Negative) 01/05/21 Unknown Urine Glucose (UA) Neg mg/dL (Negative) 01/05/21 Unknown Urine Ketones Tr mg/dL (Negative) 01/05/21 Unknown Urine Blood Neg (Negative) 01/05/21 Unknown Urine Nitrite Neg (Negative) 01/05/21 Unknown Urine Bilirubin Neg (Negative) 01/05/21 Unknown Urine Urobilinogen < 2.0 mg/dL (<2.0) 01/05/21 Unknown Ur Leukocyte Esterase Neg (Negative) 01/05/21 Unknown Urine WBC (Auto) 2.0 /HPF (0.0-6.0) 01/05/21 Unknown Urine RBC (Auto) 2.0 /HPF (0.0-6.0) 01/05/21 Unknown U Epithel Cells (Auto) < 1.0 /HPF (0-13.0) 01/05/21 Unknown Urine Mucus Few /HPF 01/05/21 Unknown Urine Opiates Screen Negative 01/05/21 Unknown Urine Methadone Screen Negative 01/05/21 Unknown Ur Barbiturates Screen Negative 01/05/21 Unknown Ur Phencyclidine Scrn Negative 01/05/21 Unknown Ur Amphetamines Screen Negative 01/05/21 Unknown U Benzodiazepines Scrn Negative 01/05/21 Unknown Urine Cocaine Screen Negative 01/05/21 Unknown U Marijuana (THC) Screen Positive 01/05/21 Unknown Drugs of Abuse Note Disclamer 01/05/21 Unknown Plasma/Serum Alcohol < 0.01 % (0-0.07) 01/05/21 15:47 Coronavirus (PCR) Negative (Negative) 01/06/21 Unknown Microbiology: Microbiology 01/05/21 17:46 Peripheral/Venous Blood Culture - Preliminary NO GROWTH AFTER 24 HOURS 01/05/21 17:32 Peripheral/Venous Blood Culture - Preliminary NO GROWTH AFTER 24 HOURS Meza/IV: Voiding Method Urinal Active Medications - Current Medications Current Medications: Generic Name Dose Route Start Last Admin Trade Name Freq PRN Reason Stop Dose Admin Acetaminophen 650 mg 01/05/21 18:33 01/06/21 05:53 Acetaminophen 325 Mg Tab PO 650 mg Q6H PRN Administration Pain MILD(1-3)/Fever >100.5/ROPER Albuterol 2.5 mg 01/05/21 18:33 Albuterol 2.5 Mg/3 Ml Nebu IH Q3HRT PRN Shortness Of Breath Ascorbic Acid 500 mg 01/05/21 22:00 01/06/21 21:57 Ascorbic Acid 500 Mg Tab PO 500 mg BID LEIA Administration Cholecalciferol 1,000 unit 01/06/21 10:00 01/06/21 10:35 Cholecalciferol (Vit D3) 400 Unit Tab PO 1,000 unit QDAY LEIA Administration Famotidine 20 mg 01/06/21 10:00 01/06/21 10:35 Famotidine 20 Mg/2 Ml Inj IV 20 mg QDAY LEIA Administration Heparin Sodium (Porcine) 5,000 unit 01/05/21 22:00 01/06/21 21:59 Heparin 5,000 Unit/1 Ml Vial SUB-Q 5,000 unit Q12HR LEIA Administration Hydromorphone HCl 0.5 mg 01/05/21 18:33 Hydromorphone 1 Mg/1 Ml Inj IV Q23H PRN Pain , Severe (7-10) Dexmedetomidine HCl 200 mcg/ 50 mls @ 3.742 mls/hr 01/05/21 20:00 Sodium Chloride IV TITRATE LEIA Protocol 0.2 MCG/KG/HR Azithromycin 500 mg in 250 mls @ 250 mls/hr 01/06/21 12:00 01/06/21 17:08 Zithromax/Ns IV 250 mls/hr Q24H LEIA Administration Cefepime HCl 2 gm in 100 mls @ 200 mls/hr 01/06/21 22:00 01/06/21 21:58 Cefepime/Ns 2 Gm/100 Ml IV 200 mls/hr Q12H LEIA Administration Protocol Vancomycin HCl 1,250 mg/ 275 mls @ 166.667 mls/hr 01/07/21 18:00 Sodium Chloride IV Q12H LEIA Methylprednisolone Sodium Succinate 40 mg 01/05/21 22:00 01/07/21 05:04 Methylprednisolone Sod Succinate 40 Mg/1 Ml Inj IV 40 mg Q8HR LEIA Administration Oxycodone/Acetaminophen 1 tab 01/05/21 18:33 Oxycodone /Acetaminophen 5-325mg Tab PO Q16H PRN Pain, Moderate (4-6) Sodium Chloride 10 ml 01/05/21 22:00 01/06/21 21:59 Sodium Chloride 0.9% 10 Ml Flush Syringe IV 10 ml BID LEIA Administration Sodium Chloride 10 ml 01/05/21 18:33 Sodium Chloride 0.9% 10 Ml Flush Syringe IV PRN PRN LINE FLUSH Zinc Sulfate 220 mg 01/05/21 22:00 01/06/21 21:57 Zinc Sulfate 220 Mg Cap PO 220 mg BID LIEA Administration
[2021-01-07] MEDS: HEPARIN 5,000 UNIT/1 ML VIAL SUB-Q SCH ×2 (10:16→21:45)
[2021-01-07] MEDS: ASCORBIC ACID 500 MG TAB PO SCH ×2 (10:16→21:44)
[2021-01-07] MEDS: CHOLECALCIFEROL (VIT D3) 400 UNIT TAB PO SCH (10:16)
[2021-01-07] MEDS: FAMOTIDINE 20 MG/2 ML INJ IV SCH (10:16)
[2021-01-07] MEDS: ZINC SULFATE 220 MG CAP PO SCH ×2 (10:16→21:43)
[2021-01-07] MEDS: CEFEPIME/NS 2 GM/100 ML 2 GM/100 ML BAG IV SCH ×2 (10:19→21:42)
--- NOTE | 2021-01-07 11:04 | Progress Note ---
Assessment and Plan Cultures: COVID-19 PCR: negative 01/05/2021 blood culture: no growth A/P: 65-year-old male with BPH was found down unresponsive in the physician tariq. 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 Patient was brought to the emergency room, reportedly experienced generalized seizures, noted to be hypoxic: #Bilateral pneumonia: COVID-19 negative CTA negative for pulmonary embolism, showed bilateral pneumonia. Possible aspiration. Fully vaccinated against COVID (did not receive booster). CRP is 0.0. #Acute hypoxic resp failure: on HFNC. #Acute encephalopathy: improved. #Urinary tox: Positive for THC #New onset seizures: Consider neurology evaluation along with MRI brain. CT head without acute abnormality. Recs: -COVID-19 negative, can stop steroids -Follow-up procalcitonin -continue empiric cefepime, azithromycin, vancomycin for now -MRSA nasal PCR ordered, if negative, discontinue vancomycin (d/w RN and patient) -please collect and send Legionella, Pneumococcal Ur antigens ordered Leeanna Calero MD, FACP [facility] ([facility]) O: [phone] F: [phone] Subjective Date of service: 01/07/21 Principal diagnosis: AMS; Acute hypoxemic resp failure; Possible seizures; Thrombocytopenia Interval history: Remains afebrile. Still on high flow nasal cannula. COVID-19 PCR came back negative. Feels well, no complaints Objective - Exam Narrative Exam: Physical Exam: Constitutional: Alert, cooperative. No acute distress Head, Ears, Nose: Normocephalic, atraumatic. External ears, nose normal Eyes: Conjunctivae/corneas clear. No icterus. No ptosis. Neck: Supple, no meningeal signs Cardiovascular: S1, S2 + Respiratory: AE fair b/l GI: Soft, non-tender; bowel sounds normal. No peritoneal signs Musculoskeletal: No pedal edema, no cyanosis. Skin: No rash or abscess Hem/Lymphatic: No palpable cervical or supraclavicular nodes. No lymphangitis Psych: Mood ok. Affect normal Neurological: Awake, alert, oriented. No gross abnormality - Constitutional Vitals: Vital Signs Temp Pulse Resp BP Pulse Ox 98.2 F 75 27 H 129/83 94 01/07/21 07:31 01/07/21 09:00 01/07/21 09:00 01/07/21 09:00 01/07/21 09:00 Temperature -Last 24 Hours Temperature 98.2 F Temperature 98.8 F Temperature 98.5 F Temperature 99.6 F Temperature 98.2 F Temperature 98.2 F - Labs CBC & Chem 7: 01/06/21 05:06 01/06/21 05:06 Labs: Abnormal lab results 01/06/21 Range/Units 05:06 Lymphocytes % (Manual) 9.0 L (13.4-35.0) % Seg Neutrophils # Man 9.3 H (1.8-7.7) K/mm3
--- NOTE | 2021-01-07 14:20 | Magnetic Resonance Report ---
MR brain wo/w con INDICATION / CLINICAL INFORMATION: 65 years Male; new onset sz. TECHNIQUE: Multiplanar, multisequence MR images of the brain were obtained. Significant motion artifact present. COMPARISON: CT-01/05/2021 FINDINGS: BRAIN / INTRACRANIAL CONTENTS: No acute hemorrhage, mass effect, midline shift, hydrocephalus, or acu te, large territorial infarct. No chronic infarct or atrophy. Minimal, nonspecific white matter disea se identified. I see no signs of abnormal enhancement following contrast administration. CRANIOCERVICAL JUNCTION: No significant abnormality. VASCULAR FLOW-VOIDS: No significant abnormality. ORBITS: No significant abnormality of visualized orbits. SINUSES / MASTOIDS: No significant abnormality in the visualized paranasal sinuses or mastoid air rabia ls. ADDITIONAL FINDINGS: None. IMPRESSION: 1. No focal mass, hemorrhage, hydrocephalus, or acute ischemia. Signer Name: Ilia Morales MD, III Signed: 01/07/2021 2:16 PM Workstation Name: [id number]
[2021-01-07] MEDS: AZITHROMYCIN/NS 500 MG/250 ML 500 MG/250 ML BAG IV SCH (15:00)
--- NOTE | 2021-01-07 15:03 | Progress Note ---
Assessment and Plan Acute encephalopathy, possibly toxic metabolic Acute hypoxemic respiratory failure Possible seizures History of benign prostatic hypertrophy Thrombocytopenia Lactic acidosis/metabolic acidosis - neurology evaluation ongoing - tentatively discharge in am on supplemental oxygen - unable to tolerate BIPAP - complete empiric AB's - discontinued solumedrol, ascorbic acid and Zinc - continue care as below otherwise; - continue accuchecks with glycemic control per SSI for target blood glucose < 180 mg/dL - continue to wean supplemental oxygen for target O2 sat's > 90% acutely - aspiration precautions - continue bronchodilators with pulmonary hygiene per RT - avoid nephrotoxins, renally dose all medications - continue to avoid benzodiazepine's, reduce the possibility of delirium - AB's per ID rec's - prn analgesia per pain score - Maintenance of sleep-wake cycle, avoid delirium - G.I. & VTE prophylaxis - PT/OT/ROM exercises - continue mobility protocols for pressure ulcer prophylaxis - Monitor hemodynamics closely - continue other care per attending / other consultants - discharge planning ongoing concurrently COVID SPECIFIC INTERVENTIONS - COVID-19 tests negative .... Re-evaluate in am & prn Subjective Date of service: 01/07/21 Principal diagnosis: AMS; Acute hypoxemic resp failure; Possible seizures; Thrombocytopenia Interval history: Patient is seen today for: Acute encephalopathy; Acute hypoxemic respiratory failure; Possible seizures; BPH; Thrombocytopenia Seen and examined at bedside; 24hour events reviewed; nursing and respiratory care staff consulted; no adverse overnight events reported to me; resting in bed; doing better overall; FiO2 down to 40%; denies acute chest pain; + cough no hemoptysis Objective Vital Signs - 12hr 01/07/21 01/07/21 01/07/21 03:23 03:30 03:45 Temperature 98.8 F Pulse Rate 64 Pulse Rate [ From Monitor] Respiratory 28 H Rate Blood Pressure 132/81 O2 Sat by Pulse 87 97 Oximetry 01/07/21 01/07/21 01/07/21 04:00 04:30 05:00 Temperature Pulse Rate 79 64 61 Pulse Rate [ 84 From Monitor] Respiratory 19 33 H 28 H Rate Blood Pressure 132/81 135/87 O2 Sat by Pulse 92 94 95 Oximetry 01/07/21 01/07/21 01/07/21 05:30 06:00 06:30 Temperature Pulse Rate 66 52 L 57 L Pulse Rate [ From Monitor] Respiratory 29 H 27 H 26 H Rate Blood Pressure 135/87 135/87 147/78 O2 Sat by Pulse 98 99 99 Oximetry 01/07/21 01/07/21 01/07/21 07:00 07:30 07:31 Temperature 98.2 F Pulse Rate 51 L 52 L Pulse Rate [ From Monitor] Respiratory 25 H 23 Rate Blood Pressure 148/79 148/79 O2 Sat by Pulse 98 95 Oximetry 01/07/21 01/07/21 01/07/21 08:00 08:30 08:38 Temperature Pulse Rate 73 88 Pulse Rate [ 80 From Monitor] Respiratory 42 H 22 Rate Blood Pressure 137/83 137/83 O2 Sat by Pulse 93 93 96 Oximetry 01/07/21 01/07/21 01/07/21 09:00 09:30 10:00 Temperature Pulse Rate 75 48 L 62 Pulse Rate [ From Monitor] Respiratory 27 H 18 20 Rate Blood Pressure 129/83 129/83 137/77 O2 Sat by Pulse 94 97 99 Oximetry 01/07/21 01/07/21 01/07/21 10:30 11:00 11:30 Temperature Pulse Rate 58 L 73 70 Pulse Rate [ From Monitor] Respiratory 27 H 36 H 19 Rate Blood Pressure 137/77 137/77 112/85 O2 Sat by Pulse 97 92 97 Oximetry 01/07/21 01/07/21 12:42 14:38 Temperature 98.1 F Pulse Rate Pulse Rate [ From Monitor] Respiratory Rate Blood Pressure O2 Sat by Pulse 94 Oximetry Constitutional: no acute distress, other (elderly male with mildly increased res piratory effort at rest) Eyes: non-icteric ENT: oropharynx moist Neck: supple, no lymphadenopathy, no JVD Effort: mildly labored Ascultation: Bilateral: rales Percussion: Bilateral: not dull Cardiovascular: regular rate and rhythm Gastrointestinal: normoactive bowel sounds, soft, non-tender, non-distended Integumentary: normal Extremities: no cyanosis, no edema, pulses normal, no ischemia or petechiae Neurologic: normal mental status, non-focal exam, pupils equal and round, motor strength normal and Psychiatric: mood appropriate, affect normal CBC and BMP: 01/06/21 05:06 01/06/21 05:06 ABG, PT/INR, D-dimer: ABG ABG pH 7.387 pH Units (7.350-7.450) 01/05/21 21:45 ABG pCO2 41.0 mm Hg 01/05/21 21:45 ABG pO2 107.6 mm Hg (80.0-90.0) H 01/05/21 21:45 ABG O2 Saturation 97.9 % (95.0-99.0) 01/05/21 21:45 PT/INR, D-dimer D-Dimer 1795.74 ng/mlDDU (0-234) H 01/05/21 17:20 Abnormal lab findings: Abnormal Labs 01/05/21 01/05/21 01/05/21 15:47 15:47 15:47 WBC MCV 99 H RDW Plt Count 137 L Seg Neuts % (Manual) 80.0 H Lymphocytes % (Manual) 10.0 L Seg Neutrophils # Man Lymphocytes # (Manual) 0.9 L D-Dimer ABG pO2 ABG Hemoglobin Chloride Carbon Dioxide 15 L Glucose 117 H Lactic Acid 10.80 H* Calcium Phosphorus Lactate Dehydrogenase Total Protein Albumin 01/05/21 01/05/21 01/05/21 17:20 17:20 17:20 WBC MCV RDW Plt Count Seg Neuts % (Manual) Lymphocytes % (Manual) Seg Neutrophils # Man Lymphocytes # (Manual) D-Dimer 1795.74 H ABG pO2 ABG Hemoglobin Chloride Carbon Dioxide Glucose Lactic Acid 3.40 H* Calcium Phosphorus Lactate Dehydrogenase 202 H Total Protein Albumin 01/05/21 01/05/21 01/06/21 17:20 21:45 05:06 WBC 16.0 H MCV 97 H RDW 13.0 L Plt Count 121 L Seg Neuts % (Manual) Lymphocytes % (Manual) 9.0 L Seg Neutrophils # Man 9.3 H Lymphocytes # (Manual) D-Dimer ABG pO2 107.6 H ABG Hemoglobin 12.9 L Chloride Carbon Dioxide Glucose Lactic Acid Calcium Phosphorus 1.30 L Lactate Dehydrogenase Total Protein Albumin 01/06/21 05:06 WBC MCV RDW Plt Count Seg Neuts % (Manual) Lymphocytes % (Manual) Seg Neutrophils # Man Lymphocytes # (Manual) D-Dimer ABG pO2 ABG Hemoglobin Chloride 108.5 H Carbon Dioxide Glucose 129 H Lactic Acid Calcium 8.3 L Phosphorus Lactate Dehydrogenase Total Protein 6.0 L Albumin 3.3 L Allied health notes reviewed: nursing
[2021-01-07] MEDS: ACETAMINOPHEN 325 MG TAB PO PRN (20:31)
[2021-01-08 06:37] LABS: Basophils % (Auto) 0.2 % (0.0-1.8); Hematocrit 37.7 % (35.5-45.6); Hemoglobin 12.3 gm/dl (11.8-15.2); Lymphocytes # (Auto) 1.7 K/mm3 (1.2-5.4); Lymphocytes % (Auto) 10.4 % (13.4-35.0); Mean Corpuscular HGB Conc 33 % (32-34); Mean Corpuscular Volume 97 fl (84-94); Monocytes % (Auto) 6.2 % (0.0-7.3); Platelet Count 121 K/mm3 (140-440); Red Blood Count 3.87 M/mm3 (3.65-5.03); Red Cell Distribution Width 13.2 % (13.2-15.2)
[2021-01-08 07:02] LABS: BUN/Creatinine Ratio 24; Blood Urea Nitrogen 19 mg/dL (9-20); Calcium 8.6 mg/dL (8.4-10.2); Hemolysis Index 5
--- NOTE | 2021-01-08 09:27 | Progress Note ---
Assessment and Plan Assessment and plan: Acute hypoxemic respiratory failure New onset seizure disorder Bilateral aspiration pneumonia. Covid PCR negative Acute encephalopathy. Etiology secondary to metabolic versus postictal from seizure Elevated D-dimer. Negative PE/DVT 01/06/2021; Silva PCR test is negative Elevated D-dimers negative PE negative DVT Severe hypoxemia requiring high flow nasal cannula oxygen 30 L. 80% FiO2 Wean as tolerated, Syncope work-up in progress Follow-up neurology evaluation recommendations 01/07/2021. Patient with high flow nasal cannula 30 L O2 with FiO2 of 70%. Continue to wean oxygen supplementation as tolerated. Encephalopathy has resolved. EEG and MRI ordered for new onset seizure. Continue IV antibiotics for pneumonia. Echocardiogram previously ordered. Await further follow-up testing. Carotid ultrasound negative 01/08/2021. Patient still requiring oxygen of 5 L O2 with saturations at 97%. Continue to wean oxygen as tolerated. Encephalopathy resolved. MRI negative for acute findings. Patient will need EEG but can possibly done as outpatient. Neurology consultation in a.m. Steroids discontinued since COVID-19 negative. Procalcitonin level also negative. Continue IV antibiotics per ID recommendations. CTA showed no evidence of PE. Diffuse groundglass opacities in bilateral lungs. Given the negative procalcitonin, we will follow-up echocardiogram. History Interval history: No new issues overnight Hospitalist Physical - Constitutional Vitals: Temp Pulse Resp BP Pulse Ox 98.1 F 61 14 124/70 99 01/08/21 07:29 01/08/21 09:00 01/08/21 09:00 01/08/21 09:00 01/08/21 09:00 General appearance: Present: mild distress, other (HFNC 30 L /80% FiO2 and 99% O2 sat) - EENT Eyes: Present: PERRL, EOM intact ENT: hearing intact, clear oral mucosa, dentition normal - Neck Neck: Present: supple, normal ROM - Respiratory Respiratory effort: normal Respiratory: bilateral: CTA - Cardiovascular Rhythm: regular Heart Sounds: Present: S1 & S2. Absent: gallop, rub - Extremities Extremities: no ischemia, No edema, Full ROM - Abdominal General gastrointestinal: soft, non-tender, non-distended, normal bowel sounds - Integumentary Integumentary: Present: clear, warm, dry - Neurologic Neurologic: CNII-XII intact, moves all extremities HEART Score - HEART Score Troponin: Troponin T < 0.010 ng/mL (0.00-0.029) 01/05/21 16:11 Results - Labs CBC & Chem 7: 01/08/21 06:23 01/08/21 06:23 Labs: Laboratory Last Values WBC 16.3 K/mm3 (4.5-11.0) H 01/08/21 06:23 RBC 3.87 M/mm3 (3.65-5.03) 01/08/21 06:23 Hgb 12.3 gm/dl (11.8-15.2) 01/08/21 06:23 Hct 37.7 % (35.5-45.6) 01/08/21 06:23 MCV 97 fl (84-94) H 01/08/21 06:23 MCH 32 pg (28-32) 01/08/21 06:23 MCHC 33 % (32-34) 01/08/21 06:23 RDW 13.2 % (13.2-15.2) 01/08/21 06:23 Plt Count 121 K/mm3 (140-440) L 01/08/21 06:23 Lymph % (Auto) 10.4 % (13.4-35.0) L 01/08/21 06:23 [place] % (Auto) 6.2 % (0.0-7.3) 01/08/21 06:23 Eos % (Auto) 0.0 % (0.0-4.3) 01/08/21 06:23 Baso % (Auto) 0.2 % (0.0-1.8) 01/08/21 06:23 Lymph # (Auto) 1.7 K/mm3 (1.2-5.4) 01/08/21 06:23 [place] # (Auto) 1.0 K/mm3 (0.0-0.8) H 01/08/21 06:23 Eos # (Auto) 0.0 K/mm3 (0.0-0.4) 01/08/21 06:23 Baso # (Auto) 0.0 K/mm3 (0.0-0.1) 01/08/21 06:23 Add Manual Diff Complete 01/06/21 05:06 Total Counted 100 01/06/21 05:06 Seg Neutrophils % 83.2 % (40.0-70.0) H 01/08/21 06:23 Seg Neuts % (Manual) 58.0 % (40.0-70.0) 01/06/21 05:06 Band Neutrophils % 17.0 % 01/06/21 05:06 Lymphocytes % (Manual) 9.0 % (13.4-35.0) L 01/06/21 05:06 Monocytes % (Manual) 2.0 % (0.0-7.3) 01/06/21 05:06 Metamyelocytes % 11.0 % 01/06/21 05:06 Myelocytes % 3.0 % 01/06/21 05:06 Promyelocytes % 1.0 % 01/05/21 15:47 Nucleated RBC % Not Reportable 01/06/21 05:06 Seg Neutrophils # 13.6 K/mm3 (1.8-7.7) H 01/08/21 06:23 Seg Neutrophils # Man 9.3 K/mm3 (1.8-7.7) H 01/06/21 05:06 Band Neutrophils # 2.7 K/mm3 01/06/21 05:06 Lymphocytes # (Manual) 1.4 K/mm3 (1.2-5.4) 01/06/21 05:06 Abs React Lymphs (Man) 0.0 K/mm3 01/06/21 05:06 Monocytes # (Manual) 0.3 K/mm3 (0.0-0.8) 01/06/21 05:06 Eosinophils # (Manual) 0.0 K/mm3 (0.0-0.4) 01/06/21 05:06 Basophils # (Manual) 0.0 K/mm3 (0.0-0.1) 01/06/21 05:06 Metamyelocytes # 1.8 K/mm3 01/06/21 05:06 Myelocytes # 0.5 K/mm3 01/06/21 05:06 Promyelocytes # 0.0 K/mm3 01/06/21 05:06 Blast Cells # 0.0 K/mm3 01/06/21 05:06 WBC Morphology Not Reportable 01/06/21 05:06 Hypersegmented Neuts Not Reportable 01/06/21 05:06 Hyposegmented Neuts Not Reportable 01/06/21 05:06 Hypogranular Neuts Not Reportable 01/06/21 05:06 Smudge Cells Not Reportable 01/06/21 05:06 Toxic Granulation Not Reportable 01/06/21 05:06 Toxic Vacuolation Not Reportable 01/06/21 05:06 Dohle Bodies Not Reportable 01/06/21 05:06 Pelger-Huet Anomaly Not Reportable 01/06/21 05:06 Lana Rods Not Reportable 01/06/21 05:06 Platelet Estimate Consistent w auto 01/06/21 05:06 Clumped Platelets Not Reportable 01/06/21 05:06 Plt Clumps, EDTA Not Reportable 01/06/21 05:06 Large Platelets Few 01/06/21 05:06 Giant Platelets Not Reportable 01/06/21 05:06 Platelet Satelliting Not Reportable 01/06/21 05:06 Plt Morphology Comment Platelet clumping 01/06/21 05:06 RBC Morphology Not Reportable 01/06/21 05:06 Dimorphic RBCs Not Reportable 01/06/21 05:06 Polychromasia Not Reportable 01/06/21 05:06 Hypochromasia Not Reportable 01/06/21 05:06 Poikilocytosis Not Reportable 01/06/21 05:06 Anisocytosis Not Reportable 01/06/21 05:06 Microcytosis Not Reportable 01/06/21 05:06 Macrocytosis Not Reportable 01/06/21 05:06 Spherocytes Not Reportable 01/06/21 05:06 Pappenheimer Bodies Not Reportable 01/06/21 05:06 Sickle Cells Not Reportable 01/06/21 05:06 Target Cells Not Reportable 01/06/21 05:06 Tear Drop Cells Not Reportable 01/06/21 05:06 Ovalocytes Not Reportable 01/06/21 05:06 Helmet Cells Not Reportable 01/06/21 05:06 [place] Bodies Not Reportable 01/06/21 05:06 [place] Rings Not Reportable 01/06/21 05:06 Rebeca Cells Not Reportable 01/06/21 05:06 Bite Cells Not Reportable 01/06/21 05:06 Crenated Cell Not Reportable 01/06/21 05:06 Elliptocytes Not Reportable 01/06/21 05:06 Acanthocytes (Spur) Not Reportable 01/06/21 05:06 Rouleaux Not Reportable 01/06/21 05:06 Hemoglobin C Crystals Not Reportable 01/06/21 05:06 Schistocytes Not Reportable 01/06/21 05:06 Malaria parasites Not Reportable 01/06/21 05:06 Alex Bodies Not Reportable 01/06/21 05:06 Hem Pathologist Commnt No 01/06/21 05:06 D-Dimer 1795.74 ng/mlDDU (0-234) H 01/05/21 17:20 ABG pH 7.387 pH Units (7.350-7.450) 01/05/21 21:45 ABG pCO2 41.0 mm Hg 01/05/21 21:45 ABG pO2 107.6 mm Hg (80.0-90.0) H 01/05/21 21:45 ABG HCO3 24.1 mmol/L (20.0-26.0) 01/05/21 21:45 ABG O2 Saturation 97.9 % (95.0-99.0) 01/05/21 21:45 ABG O2 Content 17.6 (0.0-44) 01/05/21 21:45 ABG Base Excess -0.9 mmol/L (-2.0-3.0) 01/05/21 21:45 ABG Hemoglobin 12.9 gm/dl (14.0-18.0) L 01/05/21 21:45 ABG Carboxyhemoglobin 1.4 % (0.0-5.0) 01/05/21 21:45 ABG Methemoglobin 0.4 % (0.0-1.5) 01/05/21 21:45 Oxyhemoglobin 96.1 % (95.0-99.0) 01/05/21 21:45 FiO2 100 % 01/05/21 21:45 Sodium 142 mmol/L (137-145) 01/08/21 06:23 Potassium 4.2 mmol/L (3.6-5.0) 01/08/21 06:23 Chloride 107.0 mmol/L (98-107) 01/08/21 06:23 Carbon Dioxide 25 mmol/L (22-30) 01/08/21 06:23 Anion Gap 14 mmol/L 01/08/21 06:23 BUN 19 mg/dL (9-20) 01/08/21 06:23 Creatinine 0.8 mg/dL (0.8-1.3) 01/08/21 06:23 Estimated GFR > 60 ml/min 01/08/21 06:23 BUN/Creatinine Ratio 24 % 01/08/21 06:23 Glucose 110 mg/dL (75-100) H 01/08/21 06:23 Lactic Acid 1.20 mmol/L (0.7-2.0) 01/07/21 05:26 Calcium 8.6 mg/dL (8.4-10.2) 01/08/21 06:23 Phosphorus 1.30 mg/dL (2.5-4.5) L 01/05/21 17:20 Magnesium 1.80 mg/dL (1.7-2.3) 01/05/21 17:20 Ferritin 201.5 ng/mL (30.0-300.0) 01/05/21 17:20 Total Bilirubin 1.10 mg/dL (0.1-1.2) 01/06/21 05:06 AST 21 units/L (5-40) 01/06/21 05:06 ALT 16 units/L (7-56) 01/06/21 05:06 Alkaline Phosphatase 73 units/L (35-129) 01/06/21 05:06 Lactate Dehydrogenase 202 units/L (91-180) H 01/05/21 17:20 Troponin T < 0.010 ng/mL (0.00-0.029) 01/05/21 16:11 C-Reactive Protein 0.00 mg/dL (0.00-1.30) 01/05/21 17:20 Total Protein 6.0 g/dL (6.3-8.2) L 01/06/21 05:06 Albumin 3.3 g/dL (3.9-5) L 01/06/21 05:06 Albumin/Globulin Ratio 1.2 % 01/06/21 05:06 Procalcitonin < 0.05 ng/mL (<0.15) 01/05/21 17:20 Urine Color Yellow (Yellow) 01/05/21 Unknown Urine Turbidity Clear (Clear) 01/05/21 Unknown Urine pH 5.0 (5.0-7.0) 01/05/21 Unknown Ur Specific [place] 1.020 (1.003-1.030) 01/05/21 Unknown Urine Protein 100 mg/dl mg/dL (Negative) 01/05/21 Unknown Urine Glucose (UA) Neg mg/dL (Negative) 01/05/21 Unknown Urine Ketones Tr mg/dL (Negative) 01/05/21 Unknown Urine Blood Neg (Negative) 01/05/21 Unknown Urine Nitrite Neg (Negative) 01/05/21 Unknown Urine Bilirubin Neg (Negative) 01/05/21 Unknown Urine Urobilinogen < 2.0 mg/dL (<2.0) 01/05/21 Unknown Ur Leukocyte Esterase Neg (Negative) 01/05/21 Unknown Urine WBC (Auto) 2.0 /HPF (0.0-6.0) 01/05/21 Unknown Urine RBC (Auto) 2.0 /HPF (0.0-6.0) 01/05/21 Unknown U Epithel Cells (Auto) < 1.0 /HPF (0-13.0) 01/05/21 Unknown Urine Mucus Few /HPF 01/05/21 Unknown Nasal Screen MRSA (PCR) Negative (Negative) 01/07/21 Unknown Urine Opiates Screen Negative 01/05/21 Unknown Urine Methadone Screen Negative 01/05/21 Unknown Ur Barbiturates Screen Negative 01/05/21 Unknown Ur Phencyclidine Scrn Negative 01/05/21 Unknown Ur Amphetamines Screen Negative 01/05/21 Unknown U Benzodiazepines Scrn Negative 01/05/21 Unknown Urine Cocaine Screen Negative 01/05/21 Unknown U Marijuana (THC) Screen Positive 01/05/21 Unknown Drugs of Abuse Note Disclamer 01/05/21 Unknown Plasma/Serum Alcohol < 0.01 % (0-0.07) 01/05/21 15:47 Coronavirus (PCR) Negative (Negative) 01/06/21 Unknown Microbiology: Microbiology 01/05/21 17:46 Peripheral/Venous Blood Culture - Preliminary NO GROWTH AFTER 48 HOURS 01/05/21 17:32 Peripheral/Venous Blood Culture - Preliminary NO GROWTH AFTER 48 HOURS Meza/IV: Voiding Method Urinal Active Medications - Current Medications Current Medications: Generic Name Dose Route Start Last Admin Trade Name Freq PRN Reason Stop Dose Admin Acetaminophen 650 mg 01/05/21 18:33 01/07/21 20:31 Acetaminophen 325 Mg Tab PO 650 mg Q6H PRN Administration Pain MILD(1-3)/Fever >100.5/ROPER Albuterol 2.5 mg 01/05/21 18:33 Albuterol 2.5 Mg/3 Ml Nebu IH Q3HRT PRN Shortness Of Breath Ascorbic Acid 500 mg 01/05/21 22:00 01/07/21 21:44 Ascorbic Acid 500 Mg Tab PO 500 mg BID LEIA Administration Cholecalciferol 1,000 unit 01/06/21 10:00 01/07/21 10:16 Cholecalciferol (Vit D3) 400 Unit Tab PO 1,000 unit QDAY LEIA Administration Famotidine 20 mg 01/06/21 10:00 01/07/21 10:16 Famotidine 20 Mg/2 Ml Inj IV 20 mg QDAY LEIA Administration Heparin Sodium (Porcine) 5,000 unit 01/05/21 22:00 01/07/21 21:45 Heparin 5,000 Unit/1 Ml Vial SUB-Q 5,000 unit Q12HR LEIA Administration Hydromorphone HCl 0.5 mg 01/05/21 18:33 Hydromorphone 1 Mg/1 Ml Inj IV Q23H PRN Pain , Severe (7-10) Dexmedetomidine HCl 200 mcg/ 50 mls @ 3.742 mls/hr 01/05/21 20:00 Sodium Chloride IV TITRATE LEIA Protocol 0.2 MCG/KG/HR Azithromycin 500 mg in 250 mls @ 250 mls/hr 01/06/21 12:00 01/07/21 15:00 Zithromax/Ns IV 250 mls/hr Q24H LEAI Administration Cefepime HCl 2 gm in 100 mls @ 200 mls/hr 01/06/21 22:00 01/07/21 21:42 Cefepime/Ns 2 Gm/100 Ml IV 200 mls/hr Q12H LEIA Administration Protocol Vancomycin HCl 1,250 mg/ 275 mls @ 166.667 mls/hr 01/07/21 18:00 01/07/21 18:26 Sodium Chloride IV 166.667 mls/hr Q12H LEIA Administration Methylprednisolone Sodium Succinate 40 mg 01/05/21 22:00 01/07/21 21:43 Methylprednisolone Sod Succinate 40 Mg/1 Ml Inj IV 40 mg Q8HR LEIA Administration Oxycodone/Acetaminophen 1 tab 01/05/21 18:33 Oxycodone /Acetaminophen 5-325mg Tab PO Q16H PRN Pain, Moderate (4-6) Sodium Chloride 10 ml 01/05/21 22:00 01/08/21 03:27 Sodium Chloride 0.9% 10 Ml Flush Syringe IV 10 ml BID LEIA Administration Sodium Chloride 10 ml 01/05/21 18:33 Sodium Chloride 0.9% 10 Ml Flush Syringe IV PRN PRN LINE FLUSH Zinc Sulfate 220 mg 01/05/21 22:00 01/07/21 21:43 Zinc Sulfate 220 Mg Cap PO 220 mg BID LEIA Administration
[2021-01-08] MEDS: ASCORBIC ACID 500 MG TAB PO SCH (10:37)
[2021-01-08] MEDS: ZINC SULFATE 220 MG CAP PO SCH (10:37)
[2021-01-08] MEDS: HEPARIN 5,000 UNIT/1 ML VIAL SUB-Q SCH (10:37)
[2021-01-08] MEDS: CHOLECALCIFEROL (VIT D3) 400 UNIT TAB PO SCH (10:38)
[2021-01-08] MEDS: FAMOTIDINE 20 MG/2 ML INJ IV SCH (10:38)
[2021-01-08] MEDS: CEFEPIME/NS 2 GM/100 ML 2 GM/100 ML BAG IV SCH (10:49)
[2021-01-08] MEDS ORDERED: guaiFENesin 100 MG/5 ML ORAL LIQD PO PRN (12:54)
[2021-01-08] MEDS: AZITHROMYCIN/NS 500 MG/250 ML 500 MG/250 ML BAG IV SCH (13:00)
--- NOTE | 2021-01-08 15:04 | Progress Note ---
Assessment and Plan Acute encephalopathy, possibly toxic metabolic Acute hypoxemic respiratory failure Possible seizures History of benign prostatic hypertrophy Thrombocytopenia Lactic acidosis/metabolic acidosis - prn anti-tussives - home oxygen - ok to discharge pulmonary-scales - continue care as below otherwise; - neurology evaluation ongoing - complete empiric AB's - continue accuchecks with glycemic control per SSI for target blood glucose < 180 mg/dL - continue to wean supplemental oxygen for target O2 sat's > 90% acutely - aspiration precautions - continue bronchodilators with pulmonary hygiene per RT - avoid nephrotoxins, renally dose all medications - continue to avoid benzodiazepine's, reduce the possibility of delirium - AB's per ID rec's - prn analgesia per pain score - Maintenance of sleep-wake cycle, avoid delirium - G.I. & VTE prophylaxis - PT/OT/ROM exercises - continue mobility protocols for pressure ulcer prophylaxis - Monitor hemodynamics closely - continue other care per attending / other consultants - discharge planning ongoing concurrently COVID SPECIFIC INTERVENTIONS - COVID-19 tests negative .... Re-evaluate in am & prn Subjective Date of service: 01/08/21 Principal diagnosis: AMS; Acute hypoxemic resp failure; Possible seizures; Thrombocytopenia Interval history: Patient is seen today for: Acute encephalopathy; Acute hypoxemic respiratory failure; Possible seizures; BPH; Thrombocytopenia Seen and examined at bedside; 24hour events reviewed; nursing and respiratory care staff consulted; no adverse overnight events reported to me; resting in bed; doing better overall; down to 2L NC; no new issues Objective Vital Signs - 12hr 01/08/21 01/08/21 01/08/21 03:30 04:00 04:30 Temperature 97.8 F Pulse Rate 60 72 55 L Pulse Rate [ From Monitor] Respiratory 39 H 15 16 Rate Blood Pressure 141/81 149/95 149/95 O2 Sat by Pulse 93 97 97 Oximetry 01/08/21 01/08/21 01/08/21 05:00 05:30 06:00 Temperature Pulse Rate 64 50 L 59 L Pulse Rate [ From Monitor] Respiratory 19 13 19 Rate Blood Pressure 149/87 149/87 149/87 O2 Sat by Pulse 94 99 97 Oximetry 01/08/21 01/08/21 01/08/21 06:30 07:00 07:29 Temperature 98.1 F Pulse Rate 72 49 L Pulse Rate [ From Monitor] Respiratory 26 H 20 Rate Blood Pressure 124/88 124/88 O2 Sat by Pulse 95 99 Oximetry 01/08/21 01/08/21 01/08/21 07:30 08:00 08:30 Temperature Pulse Rate 75 75 80 Pulse Rate [ 74 From Monitor] Respiratory 21 24 21 Rate Blood Pressure 153/85 157/84 157/84 O2 Sat by Pulse 96 93 93 Oximetry 01/08/21 01/08/21 01/08/21 09:00 09:30 10:00 Temperature Pulse Rate 61 60 61 Pulse Rate [ From Monitor] Respiratory 14 16 20 Rate Blood Pressure 124/70 124/70 124/70 O2 Sat by Pulse 99 100 100 Oximetry 01/08/21 01/08/21 01/08/21 10:30 11:00 11:30 Temperature Pulse Rate 77 69 76 Pulse Rate [ From Monitor] Respiratory 28 H 24 19 Rate Blood Pressure 123/75 123/75 163/94 O2 Sat by Pulse 92 94 96 Oximetry 01/08/21 01/08/21 01/08/21 11:50 12:00 12:30 Temperature 98.6 F Pulse Rate 68 68 Pulse Rate [ 72 From Monitor] Respiratory 21 18 Rate Blood Pressure 156/94 156/94 O2 Sat by Pulse 96 90 Oximetry 01/08/21 13:00 Temperature Pulse Rate 66 Pulse Rate [ From Monitor] Respiratory 14 Rate Blood Pressure 156/94 O2 Sat by Pulse 93 Oximetry Constitutional: no acute distress, other (elderly male without increased respiratory effort at rest) Eyes: non-icteric ENT: oropharynx moist Neck: supple, no lymphadenopathy, no JVD Effort: mildly labored Ascultation: Bilateral: rales Percussion: Bilateral: not dull Cardiovascular: regular rate and rhythm Gastrointestinal: normoactive bowel sounds, soft, non-tender, non-distended Integumentary: normal Extremities: no cyanosis, no edema, pulses normal, no ischemia or petechiae Neurologic: normal mental status, non-focal exam, pupils equal and round, motor strength normal and Psychiatric: mood appropriate, affect normal CBC and BMP: 01/08/21 06:23 01/08/21 06:23 ABG, PT/INR, D-dimer: ABG ABG pH 7.387 pH Units (7.350-7.450) 01/05/21 21:45 ABG pCO2 41.0 mm Hg 01/05/21 21:45 ABG pO2 107.6 mm Hg (80.0-90.0) H 01/05/21 21:45 ABG O2 Saturation 97.9 % (95.0-99.0) 01/05/21 21:45 PT/INR, D-dimer D-Dimer 1795.74 ng/mlDDU (0-234) H 01/05/21 17:20 Abnormal lab findings: Abnormal Labs 01/05/21 01/05/21 01/05/21 15:47 15:47 15:47 WBC MCV 99 H RDW Plt Count 137 L Lymph % (Auto) [place] # (Auto) Seg Neutrophils % Seg Neuts % (Manual) 80.0 H Lymphocytes % (Manual) 10.0 L Seg Neutrophils # Seg Neutrophils # Man Lymphocytes # (Manual) 0.9 L D-Dimer ABG pO2 ABG Hemoglobin Chloride Carbon Dioxide 15 L Glucose 117 H Lactic Acid 10.80 H* Calcium Phosphorus Lactate Dehydrogenase Total Protein Albumin 01/05/21 01/05/21 01/05/21 17:20 17:20 17:20 WBC MCV RDW Plt Count Lymph % (Auto) [place] # (Auto) Seg Neutrophils % Seg Neuts % (Manual) Lymphocytes % (Manual) Seg Neutrophils # Seg Neutrophils # Man Lymphocytes # (Manual) D-Dimer 1795.74 H ABG pO2 ABG Hemoglobin Chloride Carbon Dioxide Glucose Lactic Acid 3.40 H* Calcium Phosphorus Lactate Dehydrogenase 202 H Total Protein Albumin 01/05/21 01/05/21 01/06/21 17:20 21:45 05:06 WBC 16.0 H MCV 97 H RDW 13.0 L Plt Count 121 L Lymph % (Auto) [place] # (Auto) Seg Neutrophils % Seg Neuts % (Manual) Lymphocytes % (Manual) 9.0 L Seg Neutrophils # Seg Neutrophils # Man 9.3 H Lymphocytes # (Manual) D-Dimer ABG pO2 107.6 H ABG Hemoglobin 12.9 L Chloride Carbon Dioxide Glucose Lactic Acid Calcium Phosphorus 1.30 L Lactate Dehydrogenase Total Protein Albumin 01/06/21 01/08/21 01/08/21 05:06 06:23 06:23 WBC 16.3 H MCV 97 H RDW Plt Count 121 L Lymph % (Auto) 10.4 L [place] # (Auto) 1.0 H Seg Neutrophils % 83.2 H Seg Neuts % (Manual) Lymphocytes % (Manual) Seg Neutrophils # 13.6 H Seg Neutrophils # Man Lymphocytes # (Manual) D-Dimer ABG pO2 ABG Hemoglobin Chloride 108.5 H Carbon Dioxide Glucose 129 H 110 H Lactic Acid Calcium 8.3 L Phosphorus Lactate Dehydrogenase Total Protein 6.0 L Albumin 3.3 L Chest x-ray: pending Allied health notes reviewed: nursing
--- NOTE | 2021-01-08 15:55 | XRay Report ---
CHEST 1 VIEW 01/08/2021 3:14 PM INDICATION / CLINICAL INFORMATION: Aspiration. COMPARISON: 01/05/2021 FINDINGS: SUPPORT DEVICES: None. HEART / MEDIASTINUM: No significant abnormality. LUNGS / PLEURA: There is mild increased airspace opacity bilaterally. No pneumothorax. ADDITIONAL FINDINGS: No significant additional findings. IMPRESSION: 1. Mild interval worsening. Signer Name: Andrew Booker MD Signed: 01/08/2021 3:51 PM Workstation Name: [id number]
[2021-01-08 16:21] VITALS: BP 170/97
--- NOTE | 2021-01-09 10:54 | Discharge Summary ---
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 The patient was admitted with diagnosis of acute hypoxic respiratory failure secondary to bilateral pneumonia and toxic metabolic encephalopathy. Patient also with new onset seizures. The patient was treated with IV antibiotics and oxygen supplementation. Patient's oxygen supplementation was weaned down to 2 L prior to discharge. Patient had MRI for evaluation of seizures that was found to be negative. EEG however will be done as an outpatient patient had Covid testing done for the pneumonia which was found to be negative. Pulmonary reported patient could be discharged home. Patient was discharged home with a prescription for Levaquin daily for 5 days. Dedicated discharge time 35 minutes Disposition: 01 HOME / SELF CARE / HOMELESS Final Discharge Diagnosis (Prints w/discharge instructions): New onset seizure, acute hypoxic respiratory failure, aspiration pneumonia, Core Measure Documentation - Palliative Care Palliative Care/ Comfort Measures: Not Applicable - Core Measures Any of the following diagnoses?: none Exam - Constitutional Vitals: Temp Pulse Resp BP Pulse Ox 99.7 F H 74 20 170/97 94 01/08/21 16:19 01/08/21 16:00 01/08/21 16:00 01/08/21 16:00 01/08/21 16:00 General appearance: Present: no acute distress, well-nourished - EENT Eyes: Present: PERRL ENT: hearing intact, clear oral mucosa - Neck Neck: Present: supple, normal ROM - Respiratory Respiratory effort: normal Respiratory: bilateral: CTA - Cardiovascular Heart Sounds: Present: S1 & S2. Absent: rub, click - Extremities Extremities: pulses symmetrical, No edema Peripheral Pulses: within normal limits - Abdominal General gastrointestinal: Present: soft, non-tender, non-distended, normal bowel sounds Male genitourinary: Present: normal - Integumentary Integumentary: Present: clear, warm, dry - Musculoskeletal Musculoskeletal: gait normal, strength equal bilaterally - Psychiatric Psychiatric: appropriate mood/affect, intact judgment & insight - Neurologic Neurologic: CNII-XII intact, moves all extremities Plan Activity: advance as tolerated Weight Bearing Status: Weight Bear as Tolerated Diet: regular Follow up with: PRIMARY CAREMD [Primary Care Provider] - 7 Days ZEYAD STONE MD [Staff Physician] - 7 Days
== END 2021-01-08 18:11 | disposition home or self-care (01) | DRG 177 ==
LOC: ED 15:33 → IMCU 18:33
PROVIDERS: ADMIT Internal Medicine; ATTEND Hospitalist
PROC: 4A033R1 Measurement of Arterial Saturation, Peripheral, Percutaneous Approach (ICD-10-PCS; principal; 2021-01-05)
PROC: 5A0945A Assistance with Respiratory Ventilation, 24-96 Consecutive Hours, High Flow/Velocity Cannula (ICD-10-PCS; 2021-01-05)
PROC: 5A09357 Assistance with Respiratory Ventilation, Less than 24 Consecutive Hours, Continuous Positive Airway Pressure (ICD-10-PCS; 2021-01-06)
DX: J69.0 Pneumonitis due to inhalation of food and vomit (principal); G93.41 Metabolic encephalopathy; J96.01 Acute respiratory failure with hypoxia; E87.2 Acidosis; G40.901 Epilepsy, unspecified, not intractable, with status epilepticus; Z20.822 Contact with and (suspected) exposure to COVID-19; N40.0 Benign prostatic hyperplasia without lower urinary tract symptoms; D69.6 Thrombocytopenia, unspecified
CPT/HCPCS: 36415; 36600; 70450; 70553; 71045; 71275; 80048; 80053; 80307; 80320; 81001; 82140; 82728; 82803; 83615; 83735; 84100; 84145; 84484; 85007; 85025; 85379; 86140; 87040; 87449; 87641; 93005; 93880; 93970; 94660; 94760; 99292; G0378; A9575; G0480; J0456; J0692; J0696; J1100; J1644; J1953; J2060; J2920; J3370; J3475; J7030; J7040; J7050; Q9967; U0003

== ENCOUNTER 2021-01-18 09:24 | Outpatient (CLI) | payer BC | END 2021-01-18 09:25 | disposition home or self-care (01) | LOC: EEG 09:24 | PROVIDERS: ATTEND Internal Medicine | DX: G93.41 Metabolic encephalopathy (principal) | CPT/HCPCS: 95816 ==

== ENCOUNTER 2021-01-20 08:32 | Outpatient (CLI) | payer BC | END 2021-01-20 08:33 | disposition home or self-care (01) | LOC: ECHO 08:32 | PROVIDERS: ATTEND Internal Medicine Cardiovascular Disease | DX: I08.8 Other rheumatic multiple valve diseases (principal); R55 Syncope and collapse | CPT/HCPCS: 93306 ==

== ENCOUNTER 2021-03-16 15:31 | Outpatient (CLI) | payer BC ==
--- NOTE | 2021-03-16 16:21 | XRay Report ---
CHEST 2 VIEWS INDICATION: R06.02 shortness of breath. COMPARISON: 01/08/2021 FINDINGS: Support devices: None. Heart: Within normal limits. Lungs/pleura: Left lung infiltrate has resolved since the previous exam. The left lung is clear. Ther e is minimal hazy opacity in the right middle lobe which appears to represent segmental atelectasis. The right lung is otherwise clear. No pleural effusion or pneumothorax. Additional findings: None. IMPRESSION: Minor right middle lobe opacity most consistent with segmental atelectasis. Otherwise normal chest. Signer Name: Wisam Barrett Jr, MD Signed: 03/16/2021 4:16 PM Workstation Name: [id number]
[2021-03-16 16:27] LABS: Basophils # (Auto) 0.1 K/mm3 (0.0-0.1); Basophils % (Auto) 1.2 % (0.0-1.8); Eosinophils % (Auto) 0.3 % (0.0-4.3); Hematocrit 42.2 % (35.5-45.6); Hemoglobin 13.5 gm/dl (11.8-15.2); Lymphocytes % (Auto) 29.4 % (13.4-35.0); Mean Corpuscular HGB Conc 32 % (32-34); Mean Corpuscular Volume 99 fl (84-94); Monocytes # (Auto) 0.5 K/mm3 (0.0-0.8); Platelet Count 190 K/mm3 (140-440); Red Blood Count 4.29 M/mm3 (3.65-5.03); Red Cell Distribution Width 13.6 % (13.2-15.2)
[2021-03-16 16:53] LABS: Bilirubin,Urine NEG (Negative); Blood,Urine NEG (Negative); Color,Urine Yellow (Yellow); Mucus,Urine 3+ /HPF; Protein,Urine <15 mg/dL mg/dL (Negative); RBC,Urine < 1.0 /HPF (0.0-6.0)
[2021-03-16 16:59] LABS: Alanine Aminotransferase 34 units/L (7-56); Albumin 4.2 g/dL (3.9-5); BUN/Creatinine Ratio 13; Blood Urea Nitrogen 13 mg/dL (9-20); Calcium 9.5 mg/dL (8.4-10.2); Chol/HDL Ratio 2.11 %; HDL Cholesterol 77 mg/dL (40-59); Hemolysis Index 3; LDL Cholesterol,Direct 88 mg/dL (50-130)
== END 2021-03-16 15:32 | disposition home or self-care (01) ==
LOC: XRAY 15:31
PROVIDERS: ATTEND Internal Medicine
DX: Z13.1 Encounter for screening for diabetes mellitus (principal); Z13.220 Encounter for screening for lipoid disorders; Z13.29 Encounter for screening for other suspected endocrine disorder; Z00.00 Encounter for general adult medical examination without abnormal findings; N40.1 Benign prostatic hyperplasia with lower urinary tract symptoms; E55.9 Vitamin D deficiency, unspecified; R06.02 Shortness of breath
CPT/HCPCS: 36415; 71046; 80053; 80061; 81001; 82306; 82607; 83036; 83735; 84100; 84153; 84443; 85025

== ENCOUNTER 2021-05-23 15:22 | Outpatient (CLI) | payer BC ==
--- NOTE | 2021-05-23 17:00 | XRay Report ---
CHEST 2 VIEWS INDICATION / CLINICAL INFORMATION: R07.9 CHEST PAIN UNSPECIFIED. COMPARISON: 03/16/2021 FINDINGS: SUPPORT DEVICES: None. HEART / MEDIASTINUM: No significant abnormality. LUNGS / PLEURA: There is a small left pleural effusion. There is focal airspace opacity noted in the left base which is new. No pneumothorax. The appearance of the right middle lobe is unchanged. ADDITIONAL FINDINGS: No significant additional findings. IMPRESSION: 1. There is no focal airspace opacity in the left lung base with small left effusion. The appearance is suspicious for pneumonia. Short-term follow-up radiograph should be obtained in the next several w eeks to ensure clearing of the lungs. 2. Opacity in the medial right middle lobe is unchanged. Signer Name: Andrew Booker MD Signed: 05/23/2021 4:56 PM Workstation Name: [email or web address]
== END 2021-05-23 15:23 | disposition home or self-care (01) ==
LOC: XRAY 15:22
PROVIDERS: ATTEND Surgery
DX: J90 Pleural effusion, not elsewhere classified (principal)
CPT/HCPCS: 71046

== ENCOUNTER 2021-06-09 10:26 | Outpatient (CLI) | payer BC ==
--- NOTE | 2021-06-09 16:17 | Magnetic Resonance Report ---
NONENHANCED AND CONTRAST ENHANCED MR SCAN OF THE BRAIN: INDICATION / CLINICAL INFORMATION: G40.901 EPILEPSY,. TECHNIQUE: Multiplanar, multisequence MR images of the brain obtained before and after 17 mL of Clariscan COMPARISON: MR scan of the brain from 01/07/2021 FINDINGS: BRAIN / INTRACRANIAL CONTENTS: No acute ischemia, acute hemorrhage, mass effect, midline shift, or hy drocephalus. No chronic infarct or atrophy. Scattered nonspecific white matter lesions (Fazekas 0-1) probably due to chronic small vessel disease. No enhancing parenchymal or meningeal lesions. With the history of seizures, no space taking lesion in the frontal or temporal lobes hippocampi nor mal; no evidence of cortical development malformation or nodular heterotopia MR findings unchanged. CRANIOCERVICAL JUNCTION: No significant abnormality. VASCULAR FLOW-VOIDS: No significant abnormality. ORBITS: No significant abnormality of visualized orbits. SINUSES / MASTOIDS: Mucosal thickening in the ethmoid air cells and the inferior left sphenoid sinus ADDITIONAL FINDINGS: None. IMPRESSION: 1. No acute focal parenchymal lesion in the brain; MR findings unchanged Signer Name: Carmelo Mathur MD Signed: 06/09/2021 4:13 PM Workstation Name: [email or web address]
== END 2021-06-09 10:27 | disposition home or self-care (01) ==
LOC: MRI 10:26
PROVIDERS: ATTEND Surgery
DX: G40.901 Epilepsy, unspecified, not intractable, with status epilepticus (principal)
CPT/HCPCS: 36415; 70553; 80177; A9575